=== PATIENT | male | born 1940 | race Caucasian/White ===

== ENCOUNTER → 2017-10-26 | Outpatient (CLI) | payer OTHER ==
[~2017-10-26] MED LIST: ASPIR 8181 M1 PO; CARDURA4 MG PO; CITRATE OF MAG296 ML PO; COUMADIN 2 MG TA2 M1 PO; DIALYVITE 3,001 EACH PO; FLONASE 0.05%50 MCG NASAL; IMDUR 60 MG TAB60 M1 PO; LIPITOR 20 MG T20 M1 PO; MELATONIN3 MG PO; MINOCIN100 MG PO; MIRALAX17 GM PO; NIFEDICAL XL60 MG PO; PACERONE200 MG PO; PLAVIX 75 MG TA75 M1 PO; POTASSIUM20 PO; QUESTRAN PACKET4 GM PO; RENVELA800 MG PO; SALINE NASAL SP30 ML INH; SIMVASTATIN40 MG PO; ST. JOSEPH ASPI81 MG PO; TOPROL XL25 MG PO; TYLENOL EXTRA500 MG PO
[2017-10-26 13:24] VITALS: BP 138/75
--- NOTE | 2017-10-26 13:24 | NUR ---
ARRIVED AMBULATORY. MADE SELF COMFORTABLE IN RECLINER. HX OBTAINED FROM PT'S , ALEA. ASSESSMENT COMPLETED. PT HERE FOR PROCRIT INJECTION D/T ANEMIA FROM CHRONIC KIDNEY DX (STAGE IV). PT HAD LABS DRAWN ON 10/19/17. PT TO RECEIVE PROCRIT 10,000 UNITS IM. PROCRIT 10,000 UNITS GIVEN IM INTO LEFT ARM. DENIES NEEDS OR QUESTIONS AT DISCHARGE. CARE NOTES RE: PROCRIT GIVEN TO PT'S AND SHE VERBALIZED UNDERSTANDING. S/S OF ADVERSE REACTION TO PROCRIT REVIEWED W/PT'S , ALEA. PT AMBULATED FOR D/CHARGE HOME TO SELF CARE. ACCOMPANIED BY . GAIT STEADY.
== END ==
LOC: M.INFUS 13:19
DX: N18.4 Chronic kidney disease, stage 4 (severe) (principal); D63.1 Anemia in chronic kidney disease

== ENCOUNTER → 2017-11-09 | Outpatient (CLI) | payer OTHER ==
[2017-11-09 14:05] VITALS: BP 132/71
--- NOTE | 2017-11-09 14:27 | NUR ---
DENIES ADVERSE REACTION TO PRIOR INJECTION OF SAME. INJECTION COMPLETED AND TOELRATED WELL. DENIES NEEDS AT DISCHARGE.
== END ==
LOC: M.INFUS 03:44
DX: N18.4 Chronic kidney disease, stage 4 (severe) (principal); D63.1 Anemia in chronic kidney disease

== ENCOUNTER → 2017-11-26 | Outpatient (CLI) | payer OTHER ==
[2017-11-26 11:00] VITALS: BP 145/91
[2017-11-26 12:09] LABS: CALCIUM 8.2 mg/dL (8.5-10.1); CREATININE 4.2 mg/dL (0.6-1.3); POTASSIUM 3.6 mmol/L (3.5-5.1)
== END ==
LOC: M.INFUS 11-23 01:40 → M.RAD 11:10
PROVIDERS: Internal Medicine Nephrology
DX: N18.4 Chronic kidney disease, stage 4 (severe) (principal); D64.9 Anemia, unspecified; I51.7 Cardiomegaly; I50.1 Left ventricular failure, unspecified; J90 Pleural effusion, not elsewhere classified

== ENCOUNTER → 2017-12-07 | Outpatient (CLI) | payer OTHER ==
[2017-12-07 12:44] VITALS: BP 136/93
--- NOTE | 2017-12-07 14:39 | NUR ---
INJECTIONOF SAME DOSE, 12,500 COMPLETED AND TOLERATED WELL. DENIES ADVERSE REACTION TO PRIOR INJECTIONS OF SAME. DENIES QUESTIONS OR NEEDS AT DISCHARGE.
== END ==
LOC: M.INFUS 01:51
DX: N18.4 Chronic kidney disease, stage 4 (severe) (principal); D63.1 Anemia in chronic kidney disease

== ENCOUNTER 2018-01-12 06:02 | Emergency (ER) | payer OTHER ==
[~2018-01-12] VITALS: Ht 177.8 cm; Wt 68.0 kg
[~2018-01-12 06:02] MED LIST changes: -COUMADIN 2 MG TA2 M1 PO; -DIALYVITE 3,001 EACH PO; -FLONASE 0.05%50 MCG NASAL; -IMDUR 60 MG TAB60 M1 PO; -MELATONIN3 MG PO; -MIRALAX17 GM PO; -PACERONE200 MG PO; -RENVELA800 MG PO; -SALINE NASAL SP30 ML INH; -ST. JOSEPH ASPI81 MG PO; -TOPROL XL25 MG PO; -TYLENOL EXTRA500 MG PO
[2018-01-12 06:08] VITALS: BP 156/89
[2018-01-12] MEDS ORDERED: PACERONE200 MG PO (06:17)
[2018-01-12] MEDS ORDERED: ST. JOSEPH ASPI81 MG PO (06:18)
[2018-01-12] MEDS ORDERED: FLONASE 0.05%50 MCG NASAL (06:24)
[2018-01-12] MEDS ORDERED: COUMADIN 2 MG TA2 M1 PO (06:25)
[2018-01-12] MEDS ORDERED: MIRALAX17 GM PO (06:25)
[2018-01-12] MEDS ORDERED: TOPROL XL25 MG PO (06:25)
[2018-01-12] MEDS ORDERED: IMDUR 60 MG TAB60 M1 PO (06:25)
[2018-01-12 06:56] LABS: INR 3.1
== END 2018-01-12 07:21 | disposition home or self-care (01) ==
LOC: M.ERS 06:02
PROVIDERS: Emergency Medicine
DX: R04.0 Epistaxis (principal); I25.10 Atherosclerotic heart disease of native coronary artery without angina pectoris; I12.9 Hypertensive chronic kidney disease with stage 1 through stage 4 chronic kidney disease, or unspecified chronic kidney disease; N18.4 Chronic kidney disease, stage 4 (severe); I48.91 Unspecified atrial fibrillation; Z86.2 Personal history of diseases of the blood and blood-forming organs and certain disorders involving the immune mechanism; Z86.73 Personal history of transient ischemic attack (TIA), and cerebral infarction without residual deficits

== ENCOUNTER 2018-01-12 14:30 | Emergency (ER) | payer OTHER ==
[~2018-01-12] VITALS: Ht 177.8 cm; Wt 68.0 kg
[~2018-01-12 14:30] MED LIST changes: +COUMADIN 2 MG TA2 M1 PO; +FLONASE 0.05%50 MCG NASAL; +IMDUR 60 MG TAB60 M1 PO; +MIRALAX17 GM PO; +PACERONE200 MG PO; +ST. JOSEPH ASPI81 MG PO; +TOPROL XL25 MG PO
[2018-01-12 14:37] VITALS: BP 136/84
== END 2018-01-12 14:56 | disposition home or self-care (01) ==
LOC: M.ERS 14:30
DX: R04.0 Epistaxis (principal); I25.10 Atherosclerotic heart disease of native coronary artery without angina pectoris; I12.0 Hypertensive chronic kidney disease with stage 5 chronic kidney disease or end stage renal disease; N18.5 Chronic kidney disease, stage 5; I48.91 Unspecified atrial fibrillation; Z86.2 Personal history of diseases of the blood and blood-forming organs and certain disorders involving the immune mechanism

== ENCOUNTER 2018-01-30 09:46 | Inpatient (IN) | payer OTHER ==
[~2018-01-30] VITALS: Ht 177.8 cm; Wt 70.3 kg
[2018-01-30 11:00] VITALS: BP 119/76
[2018-01-30] MEDS ORDERED: SALINE NASAL SP30 ML INH (11:27)
[2018-01-30] MEDS ORDERED: MELATONIN3 MG PO (11:31)
[2018-01-30] MEDS ORDERED: TYLENOL EXTRA500 MG PO (11:32)
[2018-01-30] MEDS ORDERED: DIALYVITE 3,001 EACH PO (12:12)
[2018-01-30] MEDS ORDERED: RENVELA800 MG PO (12:12)
[2018-01-30 12:14] LABS: ABSOLUTE BASOPHILS 0.1 thou/uL (0.0-0.2); ABSOLUTE EOSINOPHILS 0.1 thou/uL (0.0-0.7); ABSOLUTE LYMPHOCYTES 1.3 thou/uL (0.8-5.3); ABSOLUTE MONOCYTES 0.6 thou/uL (0.0-1.2); ABSOLUTE NEUTROPHILS 4.1 thou/uL (1.6-8.1); BASOPHILS 1.1 %; EOSINOPHILS 1.5 %; HEMATOCRIT 31.6 % (42.0-52.0); HEMOGLOBIN 10.4 gm/dL (14.0-18.0); LYMPHOCYTES 21.4 %; MCH 31.2 pg (26.0-34.0); MCV 94.5 fL (80.0-100.0); MONOCYTES 9.3 %; MPV 8.5 fl. (7.2-11.1); NUCLEATED RBCS 0 /100WBC; PLATELET COUNT* 78 thou/uL (150-400); POLYS 66.7 %; RBC 3.34 mil/uL (4.50-6.00); RDW-CV 19.8 % (10.5-14.5); WBC 6.1 thou/uL (4.0-11.0)
[2018-01-30 12:20] LABS: APTT 34.4 Seconds (25.0-31.3); INR 1.8; PROTIME 18.3 Seconds (9.20-11.50)
[2018-01-30 15:29] VITALS: BP 139/83
[2018-01-30 19:50] VITALS: BP 127/68
[2018-01-31 00:27] VITALS: BP 119/75
[2018-01-31 03:15] LABS: ALBUMIN 2.5 g/dL (3.4-5.0); CALCIUM 8.6 mg/dL (8.5-10.1); CREATININE 5.2 mg/dL (0.6-1.3); PHOSPHORUS* 3.9 mg/dL (2.5-4.9)
[2018-01-31 04:41] VITALS: BP 125/73
[2018-01-31 08:27] VITALS: BP 133/85
--- NOTE | 2018-01-31 11:08 | EKG ---
[place] [address] ELECTROCARDIOGRAM REPORT Name: MARIA ISABEL CLINE Junaid Room: [address] ADM IN .R.#: [id number] Admission: 01/31/18 Attend Phys: Chelita Rodrigues MD Discharge: Date of : 44 Report #: [id number] THIS REPORT FOR: //name// [facility] Test Date: 2018-01-30 Test Time: 12:10:11 Pat Name: MARIA ISABEL CLINE Department: Room: [facility] Gender: M Manager Mobile: : 1940 Requested By: Chelita Rodrigues Order Number: [id number] Reading MD: Nikunj Maddox Measurements Intervals [place] Rate: 62 P: IL: QRS: -54 QRSD: 193 T: 137 QT: 528 QTc: 537 Interpretive Statements sinus rhythm with first degree av block Left bundle branch block Compared to ECG 01/09/2016 08:16:46 no change Electronically Signed On 01-31-2018 11:07:51 CDT by Nikunj Maddox [email or web address] <ELECTRONICALLY SIGNED> By: Nikunj Maddox MD, FACC 01/31/18 1107 1210 1210 Nikunj Maddox MD, [facility] /EPI
[2018-01-31 11:49] VITALS: BP 141/81
[2018-01-31 20:00] VITALS: BP 136/79
[2018-02-01] VITALS (8 sets, daily range): BP systolic 108–172; BP diastolic 61–88
[2018-02-01 05:21] LABS: HEMATOCRIT 32.1 % (42.0-52.0); HEMOGLOBIN 10.9 gm/dL (14.0-18.0); MCH 31.1 pg (26.0-34.0); MCHC 33.8 g/dL (28.0-37.0); MPV 8.6 fl. (7.2-11.1); RBC 3.49 mil/uL (4.50-6.00); WBC 6.9 thou/uL (4.0-11.0)
[2018-02-01 05:35] LABS: ALBUMIN 2.7 g/dL (3.4-5.0); CALCIUM 8.2 mg/dL (8.5-10.1); POTASSIUM 3.6 mmol/L (3.5-5.1); TOTAL BILIRUBIN 0.9 mg/dL (<0.1-1.0); TOTAL PROTEIN 6.3 g/dL (6.4-8.2)
[2018-02-01 05:44] LABS: CREATININE 3.5 mg/dL (0.6-1.3)
--- NOTE | 2018-02-01 16:03 | OP ---
[address] [address] OPERATIVE REPORT Name: MARLYN,FORD Junaid Room: [address] IN M.R.#: [id number] Admission: 01/31/18 Attend Phys: Chelita Rodrigues MD Discharge: Date of : 42 Report #: [id number] THIS REPORT FOR: //name// CC: Urbano Adrian DATE OF SERVICE: 02/01/2018 PREOPERATIVE DIAGNOSIS: End-stage renal disease. POSTOPERATIVE DIAGNOSIS: End-stage renal disease. PROCEDURE: The right upper extremity brachiocephalic AV fistula formation. SURGEON: Isaac Adrian MD CHANNEL MARKETING PROGRAM MANAGER: Hal Hoyt, salesperson surgical appliances. COMPLICATIONS: None. ESTIMATED BLOOD LOSS: 10 mL. SPECIMEN: None. ANESTHESIA: Local sedation. INDICATION FOR PROCEDURE: The patient is a very pleasant 77-year-old white male with end-stage renal disease, on dialysis. He has a tunneled dialysis catheter. He needs long-term access. We plan to proceed with right arm brachiocephalic AV fistula today. Informed consent was obtained from the patient with risks including but not limited to bleeding, infection, need for further surgery, pain, , heart attack, stroke, steal syndrome. He understood these risks and was agreeable to proceed. DESCRIPTION OF PROCEDURE: The patient was taken to the OR, placed in supine position, adequate sedation was initiated, timeout was performed. Right arm was prepped and draped in usual sterile fashion. The patient received appropriate preoperative antibiotics. The patient was systemically heparinized throughout the critical portion of procedure. I created a transverse incision just above the antecubital fossa of right upper extremity. Sharp and blunt dissection was carried down the brachial artery and cephalic vein. Both these appeared to be adequate for fistula formation. I ligated the cephalic vein distally with a 2-0 silk suture ligature. I spatulated the free end of the vein. I was able to pass a 5 mm dilator without difficulty. I transposed the vein over on to the brachial artery. I created a longitudinal brachial [place] [address] OPERATIVE REPORT Name: MARIA ISABEL CLINE Room: [address] IN .R.#: [id number] Admission: 01/31/18 Attend Phys: Chelita Rodrigues MD Discharge: Date of : 42 Report #: [id number] end-to-side anastomosis between the vein and artery using a running 6-0 Prolene suture. At the completion of anastomosis, there was good hemostasis and excellent flow through the vein with a thrill running up to the patient's arm. The patient had a palpable radial pulse. I took down some connective tissue to free up the vein proximally, so there was no kinking. We irrigated the wound with antibiotic saline. We used some Gabriela and electrocautery to control bleeding as well as ties and clips. We closed the wound in multiple layers using 3-0 Vicryl and 4-0 Monocryl for the skin. Incision was dressed with Dermabond. The patient was taken alert and awake to recovery room in good condition. All needle and instrument counts were correct at the end of the case. <ELECTRONICALLY SIGNED> By: Brando Carvalho DO 02/01/18 1603 0947 [id number] Adrian MD /rolo
[2018-02-02 00:32] VITALS: BP 109/58
[2018-02-02 04:43] VITALS: BP 117/73
[2018-02-02 04:59] LABS: HEMATOCRIT 29.7 % (42.0-52.0); HEMOGLOBIN 10.1 gm/dL (14.0-18.0); INR 1.4; MCH 31.6 pg (26.0-34.0); MCHC 34.2 g/dL (28.0-37.0); MCV 92.5 fL (80.0-100.0); MPV 8.4 fl. (7.2-11.1); PROTIME 14.2 Seconds (9.20-11.50); RBC 3.21 mil/uL (4.50-6.00); RDW-CV 20.4 % (10.5-14.5); WBC 7.1 thou/uL (4.0-11.0)
[2018-02-02 05:17] LABS: CALCIUM 8.2 mg/dL (8.5-10.1)
[2018-02-02 05:43] LABS: CREATININE 4.9 mg/dL (0.6-1.3)
[2018-02-02 08:00] VITALS: BP 112/63
[2018-02-02 16:00] VITALS: BP 129/62
[2018-02-02 20:00] VITALS: BP 115/56
[2018-02-03] VITALS (7 sets, daily range): BP systolic 102–128; BP diastolic 54–76
[2018-02-03 05:21] LABS: INR 1.5; PROTIME 15.6 Seconds (9.20-11.50)
[2018-02-03 05:36] LABS: APTT 77.7 Seconds (25.0-31.3)
[2018-02-04 03:50] VITALS: BP 120/59
[2018-02-04 05:29] LABS: HEMATOCRIT 29.4 % (42.0-52.0); HEMOGLOBIN 9.8 gm/dL (14.0-18.0); MCH 31.4 pg (26.0-34.0); MCHC 33.5 g/dL (28.0-37.0); MCV 93.8 fL (80.0-100.0); MPV 8.3 fl. (7.2-11.1); RBC 3.14 mil/uL (4.50-6.00); RDW-CV 20.7 % (10.5-14.5); WBC 6.5 thou/uL (4.0-11.0)
[2018-02-04 05:43] LABS: INR 1.8; PROTIME 17.9 Seconds (9.20-11.50)
[2018-02-04 05:50] LABS: ALBUMIN 2.5 g/dL (3.4-5.0); CALCIUM 8.3 mg/dL (8.5-10.1); CREATININE 5.6 mg/dL (0.6-1.3); POTASSIUM 4.1 mmol/L (3.5-5.1); TOTAL BILIRUBIN 0.7 mg/dL (<0.1-1.0); TOTAL PROTEIN 5.9 g/dL (6.4-8.2)
[2018-02-04 08:00] VITALS: BP 120/66
[2018-02-04 12:00] VITALS: BP 113/62
[2018-02-04 12:11] VITALS: BP 120/66
[2018-02-04 16:00] VITALS: BP 117/59
[2018-02-04 16:10] LABS: HEPATITIS B SURFACE AG Negative (Negative)
[2018-02-04 20:00] VITALS: BP 133/65
[2018-02-05] VITALS: BP 129/76
[2018-02-05 01:43] LABS: ABSOLUTE BASOPHILS 0.1 thou/uL (0.0-0.2); ABSOLUTE EOSINOPHILS 0.2 thou/uL (0.0-0.7); ABSOLUTE LYMPHOCYTES 1.4 thou/uL (0.8-5.3); ABSOLUTE MONOCYTES 0.5 thou/uL (0.0-1.2); ABSOLUTE NEUTROPHILS 4.9 thou/uL (1.6-8.1); BASOPHILS 0.8 %; EOSINOPHILS 2.2 %; HEMATOCRIT 28.3 % (42.0-52.0); HEMOGLOBIN 9.6 gm/dL (14.0-18.0); LYMPHOCYTES 19.9 %; MCH 31.5 pg (26.0-34.0); MCV 92.7 fL (80.0-100.0); MPV 8.2 fl. (7.2-11.1); NUCLEATED RBCS 0 /100WBC; PLATELET COUNT* 102 thou/uL (150-400); POLYS 70.1 %; RBC 3.05 mil/uL (4.50-6.00); RDW-CV 20.5 % (10.5-14.5)
[2018-02-05 03:17] LABS: PROTIME 20.1 Seconds (9.20-11.50)
[2018-02-05 04:00] VITALS: BP 120/69
[2018-02-05 06:22] LABS: PLATELET ESTIMATE DECREASED
[2018-02-05 06:23] LABS: ANISOCYTOSIS 1+; MICROCYTES 1+; POIKILOCYTOSIS 1+
[2018-02-05 06:24] LABS: BURR CELLS Occasional; HYPOCHROMASIA Occasional
[2018-02-05 08:00] VITALS: BP 124/77
[2018-02-05 12:17] VITALS: BP 122/65
--- NOTE | 2018-02-09 11:56 | CON ---
[address] [address] CONSULTATION Name: MARIA ISABEL CLINE Junaid Room: [address] IN M.R.#: [id number] Admission: 01/31/18 Attend Phys: Chelita Rodrigues MD Discharge: 02/05/18 Date of : 42 Report #: [id number] THIS REPORT FOR: //name// CC: Urbano Adrian DATE OF SERVICE: 01/31/2018 CONSULTING PHYSICIAN: Dr. Rodrigues. REASON FOR CONSULTATION: End-stage kidney disease. HISTORY OF PRESENT ILLNESS: A 77-year-old gentleman with history of end-stage kidney disease who was admitted for heparin bridging prior to surgery for an AV fistula/graft creation on Sunday by Dr. Adrian. He currently has no complaints. He has been dialyzing without any difficulty through his tunneled dialysis catheter and has been dialyzing since 11/2017. REVIEW OF SYSTEMS: Constitutional, psych, heme, eyes, ENT, respiratory, cardiac, GI, , endocrine all negative except as documented above. PAST MEDICAL HISTORY: End-stage kidney disease, hypertension, history of CVA, dyslipidemia, ischemic cardiomyopathy. MEDICATIONS: Reviewed. SOCIAL HISTORY: No tobacco. FAMILY HISTORY: Not pertinent in this 77-year-old gentleman. MEDICATIONS: Reviewed. PHYSICAL EXAMINATION: VITAL SIGNS: Blood pressure 133/85, pulse 61, temperature 36.7. GENERAL: No acute distress. EYES: Open. EARS: Externally normal. CARDIOVASCULAR: Regular rate. LUNGS: No crackles. ABDOMEN: Soft. MUSCULOSKELETAL: Nontender. PSYCHIATRIC: Awake, alert. LABORATORY DATA: White cell count 6.1, hemoglobin 10.4, platelets 78. Sodium 134, potassium 4, chloride 100, bicarbonate 28, BUN 46, creatinine 5.2, [place] [address] CONSULTATION Name: MARIA ISABEL CLINE Room: [address] IN [facility].#: [id number] Admission: 01/31/18 Attend Phys: Chelita Rodrigues MD Discharge: 02/05/18 Date of : 42 Report #: [id number] 119, calcium 8.6, phosphorus 3.9, albumin 2.5. ASSESSMENT: 1. End-stage kidney disease, on hemodialysis Tuesdays, , Saturdays at the [facility]. 2. Anemia of chronic disease. 3. Atrial fibrillation. 4. Hypertension. 5. Coronary artery disease with ischemic cardiomyopathy. PLAN: 1. Dialysis today. 2. He does have thrombocytopenia. We will defer management of this and workup if needed to Internal Medicine. 3. Continue outpatient renal medications. He is scheduled for AV fistula/AV graft creation by Dr. Adrian tomorrow. 4. We will add a renal vitamin. 5. We will follow for dialysis needs. Thank you for requesting my opinion in the care and management of this patient. <ELECTRONICALLY SIGNED> By: Aj Mirza MD 02/09/18 1156 1114 1528Abisera Mirza MD /nt
== END 2018-02-05 14:12 | disposition home or self-care (01) | DRG 264 ==
LOC: EDSTATUS 09:46 → M.TBA 09:50 → M.2W 10:17 → M.TBA 10:17 → M.2W 13:40 → M.TBA 14:43 → M.2W 01-31 09:32 → M.SUR 02-01 07:56 → EDSTATUS 02-01 14:39 → M.2W 02-05 14:12
PROVIDERS: Internal Medicine; Internal Medicine Nephrology; Surgery Vascular Surgery; ADMIT Internal Medicine
PROC: 5A1D70Z Performance of Urinary Filtration, Intermittent, Less than 6 Hours Per Day (ICD-10-PCS; principal; 2018-01-31)
PROC: 03170ZD Bypass Right Brachial Artery to Upper Arm Vein, Open Approach (ICD-10-PCS; 2018-02-01)
PROC: 5A1D70Z Performance of Urinary Filtration, Intermittent, Less than 6 Hours Per Day (ICD-10-PCS; 2018-02-02)
PROC: 5A1D70Z Performance of Urinary Filtration, Intermittent, Less than 6 Hours Per Day (ICD-10-PCS; 2018-02-05)
DX: I13.2 Hypertensive heart and chronic kidney disease with heart failure and with stage 5 chronic kidney disease, or end stage renal disease (principal); N18.6 End stage renal disease; E44.1 Mild protein-calorie malnutrition; I48.91 Unspecified atrial fibrillation; I25.10 Atherosclerotic heart disease of native coronary artery without angina pectoris; I25.5 Ischemic cardiomyopathy; E78.00 Pure hypercholesterolemia, unspecified; I50.9 Heart failure, unspecified; D63.8 Anemia in other chronic diseases classified elsewhere; M21.371 Foot drop, right foot; Z99.2 Dependence on renal dialysis; Z86.718 Personal history of other venous thrombosis and embolism; Z86.73 Personal history of transient ischemic attack (TIA), and cerebral infarction without residual deficits; Z79.82 Long term (current) use of aspirin; Z79.899 Other long term (current) drug therapy; Z23 Encounter for immunization

== ENCOUNTER 2018-04-03 11:09 | Inpatient (IN) | payer OTHER ==
[~2018-04-03] VITALS: Ht 177.8 cm; Wt 66.7 kg
[~2018-04-03 11:09] MED LIST changes: +DIALYVITE 3,001 EACH PO; +MELATONIN3 MG PO; +RENVELA800 MG PO; +SALINE NASAL SP30 ML INH; +TYLENOL EXTRA500 MG PO
[2018-04-03 11:30] VITALS: BP 119/59
--- NOTE | 2018-04-03 12:16 | NUR ---
PT DIRECT ADMIT TO ROOM 222 FOR HEPARIN BRDIGE PRIOR TO AV FISTULA PLACEMENT 04/04/18. VSS. ADMISSION HISTORY AND ASSESSMENT COMPLETED CHARTED. PT ALERT AND OREITNED BUT FORGETFUL. PT ON RA. IV STARTED TO LEFT AC. PT TO START ON HEPARIN GTT. PT DENIES ANY PAIN. PT'S SPOUSE AT BEDSIDE. MED REC COMPLETED. PT AND SPOUSE ORIENTED TO ROOM AND CALL LIGHT AND PLAN OF CARE. THEY COMMUNICATE UNDERSTANIDNG. CALL LIGHT IS WITHIN REACH. WILL CONTINUE TO MONTIOR FOR DURATION OF SHIFT.
[2018-04-03 12:37] LABS: HEMATOCRIT 36.4 % (42.0-52.0); HEMOGLOBIN 12.4 gm/dL (14.0-18.0); MCH 33.7 pg (26.0-34.0); MCHC 34.2 g/dL (28.0-37.0); MCV 98.4 fL (80.0-100.0); PLATELET COUNT* 83 thou/uL (150-400); RDW-CV 17.2 % (10.5-14.5); WBC 7.9 thou/uL (4.0-11.0)
[2018-04-03 12:44] LABS: CREATININE 5.8 mg/dL (0.6-1.3)
[2018-04-03 12:45] LABS: APTT 34.3 Seconds (25.0-31.3); PROTIME 20.1 Seconds (9.20-11.50)
[2018-04-03 12:47] LABS: ABSOLUTE BASOPHILS 0.1 thou/uL (0.0-0.2); ABSOLUTE EOSINOPHILS 0.2 thou/uL (0.0-0.7); ABSOLUTE LYMPHOCYTES 1.2 thou/uL (0.8-5.3); ABSOLUTE MONOCYTES 0.7 thou/uL (0.0-1.2); ABSOLUTE NEUTROPHILS 5.8 thou/uL (1.6-8.1); BASOPHILS 0.9 %; EOSINOPHILS 2.6 %; LYMPHOCYTES 14.9 %; MONOCYTES 8.4 %; NUCLEATED RBCS 0 /100WBC; POLYS 73.2 %
[2018-04-03 12:48] LABS: ALBUMIN 3.2 g/dL (3.4-5.0); MAGNESIUM 2.4 mg/dL (1.8-2.4); PHOSPHORUS* 3.3 mg/dL (2.5-4.9); TOTAL BILIRUBIN 0.5 mg/dL (<0.1-1.0); TOTAL PROTEIN 7.1 g/dL (6.4-8.2)
[2018-04-03 16:00] VITALS: BP 113/53
--- NOTE | 2018-04-03 18:38 | NUR ---
VSS. CARDIAC MONITORING IN PLACE WITH NO CHANGES THIS SHIFT. PT REMAINS ALERT AND ORIENTED X 2-3 BUT FORGETFUL. IV HEPARIN GTT INFUSING PER ORDERS. VASCULAR WANTS PT TO HAVE DIALYSIS EARLY TOMORROW AM BEFORE SURGERY SCHEDULED FOR 1500. NEPHROLOGY NOTIFIED OF REQUEST. HEPARIN GTT TO BE OFF 4 HOURS BEFORE SURGERY. PT AND PT'S SPOUSE INFORMED OF PLAN OF CARE. CALL LIGHT IS WITHIN REACH. WILL CONTINUE TO MOTNIOR FOR DURATION OF SHIFT.
[2018-04-03 20:00] VITALS: BP 137/68
[2018-04-04] VITALS: BP 133/66
--- NOTE | 2018-04-04 00:05 | NUR ---
PT ASSESSMENT CVOMPLETE AT START OF SHIFT. REFER TO COMPUTER CHARTING FOR DETAILS. PT DENIES PAIN. NO FURTHER DRAINAGE FROM AV FISTULA SITE. ORDERS TO RESTART HEPARIN GTT RECEIVED. PT DENIES PAIN, SOA, N/V/D AT THIS TIME. TRACING SR-SB WITH 1ST DEGREE BLOCK ON MONITOR. CLWR
[2018-04-04 04:00] VITALS: BP 122/68
[2018-04-04 04:37] LABS: HEMATOCRIT 32.6 % (42.0-52.0); HEMOGLOBIN 11.1 gm/dL (14.0-18.0); MCH 33.6 pg (26.0-34.0); MCHC 34.1 g/dL (28.0-37.0); MCV 98.6 fL (80.0-100.0); MPV 8.6 fl. (7.2-11.1); RBC 3.3 mil/uL (4.50-6.00); RDW-CV 16.9 % (10.5-14.5); WBC 8.1 thou/uL (4.0-11.0)
[2018-04-04 04:45] LABS: CALCIUM 8.2 mg/dL (8.5-10.1); CREATININE 6.7 mg/dL (0.6-1.3); MAGNESIUM 2.4 mg/dL (1.8-2.4); POTASSIUM 3.7 mmol/L (3.5-5.1)
--- NOTE | 2018-04-04 05:20 | NUR ---
PATIENT RESTED IN BED. PATIENT DID NOT SHOW SIGNS OF DISTRESS. FALL PRECAUTIONS IN PLACE, CALL LIGHT WITH IN REACH, HOURLY ROUNDING OBSERVED, BED ALARM ON.
[2018-04-04 08:00] VITALS: BP 127/58
--- NOTE | 2018-04-04 09:59 | EKG ---
[place] [address] ELECTROCARDIOGRAM REPORT Name: MARIA ISABEL CLINE Junaid Room: [address] ADM IN M.R.#: [id number] Admission: 04/03/18 Attend Phys: Chelita Rodrigues MD Discharge: Date of : 42 Report #: [id number] THIS REPORT FOR: //name// [facility] Test Date: 2018-04-04 Test Time: 05:22:09 Pat Name: MARIA ISABEL CLINE Department: Room: [address] Gender: M Paper Products Machine Operator: DHIRAJ : 1940 Requested By: Chelita Rodrigues Order Number: [id number] Reading MD: Nikunj Maddox Measurements Intervals [place] Rate: 56 P: 256 DE: 311 QRS: -48 QRSD: 197 T: 120 QT: 546 QTc: 528 Interpretive Statements Sinus or ectopic atrial bradycardia Prolonged DE interval Left bundle branch block Compared to ECG 01/30/2018 12:10:11 Sinus rhythm no longer present Electronically Signed On 04-04-2018 9:59:38 AIR ROUTE CONTROLLER by Nikunj Maddox [email or web address] <ELECTRONICALLY SIGNED> By: Nikunj Maddox MD, [facility] 04/04/18 0959 0522 0522 Nikunj Maddox MD, [facility] /EPI
[2018-04-04 10:50] LABS: INR 1.7; PROTIME 17.1 Seconds (9.20-11.50)
--- NOTE | 2018-04-04 11:21 | NUR ---
PT ALERT AND ORIENTED X 3. DENIES DISCOMFORT. IV PATIENT. RESTARTED HEPARIN GTT @ 0800. PT TO CONTINUE WITH HEPARIN WHILE RECEIVING DIALYSIS. PT UP WITH SBA X 1 WITH GAIT BELT AND CANE. PT TO DIALYSIS @ 0842. HEPARIN GTT STOPPED @ 1100 WHILE @ DIALYSIS.
--- NOTE | 2018-04-04 11:37 | NUR ---
Pt out of the room, will f/u to assess later
--- NOTE | 2018-04-04 15:09 | NUR ---
PT RETURNED FROM DIALYSIS @ 1300. DRESSING ON RIGHT CHEST PORT-C/D/I. UP WITH STAFF TO AMBULATE AND SIT IN RECLINER. @ BEDSIDE. PT DENIES NAUSEA OR PAIN. PT TO PROCEDURE FOR FISTULA @ 1448 BY BED.
[2018-04-04 16:00] VITALS: BP 125/54
--- NOTE | 2018-04-04 17:21 | NUR ---
PT RETURNED FROM FISTULA PROCEDURE @ 7333. RESUMED RENAL DIET. HOURLY ROUNDS MAINTAINED. CALL LIGHT WITHIN REACH.
[2018-04-04 19:00] VITALS: BP 119/52
[2018-04-04 20:48] LABS: INR 1.5; PROTIME 15.7 Seconds (9.20-11.50)
[2018-04-04 23:08] LABS: HEPATITIS B SURFACE AG Negative (Negative)
[2018-04-05] VITALS (7 sets, daily range): BP systolic 95–128; BP diastolic 45–61
[2018-04-05 06:52] LABS: INR 1.5
--- NOTE | 2018-04-05 10:03 | NUR ---
Pt is A&O. Resides at home with his . Per Pt, completes most ADLs, Pt stated that he can drive, but his won't let him. Pt is independent with IADLs. Pt has a cane and walker at home that he can use for mobility. Pt is currently with [facility] and wants to resume at [facility]. Pt is current at [facility] on a TTS schedule with a chairtime of 10am, Pt's H&P and flowsheets will need to be faxed to [facility] at [facility], fax number is [phone]. No hx of skilled. Pt's goal is to return home at [facility]. Following [facility] p:[phone], f:[phone] [facility] p:[phone], f:[phone]
--- NOTE | 2018-04-05 10:27 | NUR ---
RECEIVED REPORT FROM AYAZ AND ASSUMED CARE OF PT @ 6033.PT IS A/O X4,VSS,TRACING SB WITH 1ST DEGREE AND BBB.IV LEFT WRIST PATENT WITH HEPARIN RUNNING @ 800 UNITS/HR.PT IS CALM AND COOPERATIVE WITH NO C/O PAIN AT TIME OF ASSESSMENT.PT IS UP WITH SBA TO BATHROOM.PT LEFT RESTING IN RECLINER WITH CALL LIGHT AND FALL PRECAUTIONS IN PLACE.WILL CONTINUE TO MONITOR.
--- NOTE | 2018-04-05 18:11 | NUR ---
VSS.CARDIAC MONITORING IN PLACE WITH NO CHANGES.PT REMAINS ON ROOM AIR.PROGRESSING TOWARDS GOALS.COUMADIN RESTARTED.PT INFORMED OF PLAN OF CARE AND COMMUNICATES UNDERSTANDING.NO C/O PAIN.PT AMBULATED IN HALLWAY WITH RAISE DRILLER.IV PATENT WITH HEPARIN INFUSING @ 800 UNITS/HR.HOURLY ROUNDING COMPLETED FOR PT SAFETY.PT LEFT RESTING IN RECLINER WITH CALL LIGHT AND FALL PRECAUTIONS IN PLACE.WILL CONTINUE TO MONITOR FOR DURATION OF SHIFT.
--- NOTE | 2018-04-06 00:03 | NUR ---
ASSESSMENT COMPLETE AT START OF SHIFT. PT DID AMBULATE AROUND UNIT WITH RETAIL REPRESENTATIVE, STEADY GAIT. PT DENIES PAIN, SOA, N/V/D. PT TRACING SR-SB WITH 1ST DEGREE BLOCK ON MONITOR. FALL PRECAUTIONS IN PLACE. CLWR.
[2018-04-06 03:56] VITALS: BP 132/58
--- NOTE | 2018-04-06 05:18 | NUR ---
PT HAS SLEPT WELL T/O THIS SHIFT. TRACING SB WITH 1ST DEGREE/BBB ON MONITOR. PTT IS THERAPEUTIC, NO CHANGE TO HEPARIN GTT. NO NEW CONCERNS. CLWR
[2018-04-06 07:55] VITALS: BP 124/64
[2018-04-06 08:52] LABS: INR 1.4; PROTIME 14.7 Seconds (9.20-11.50)
--- NOTE | 2018-04-06 08:57 | NUR ---
RECEIVED REPORT FROM AYAZ AND ASSUMED CARE OF PT @ 0768.PT IS A/O X4,VSS,TRACING SB WITH 1ST DEGREE AND BBB ON THE MONITOR.IV PATENT WITH HEPARIN INFUSING @ 700 UNITS/HR.DIALYSIS PORT SECURE AND CLEAN,DRY,INTACT.PT IS CALM AND COOPERATIVE WITH NO C/O PAIN AT TIME OF ASSESSMENT.PT LEFT IN CHAIR FOR BREAKFAST WITH CALL LIGHT AND FALL PRECAUTIONS IN PLACE.WILL CONTINUE TO MONITOR.
[2018-04-06] MEDS ORDERED: CONSTULOSE10 GM/152 PO (11:41)
[2018-04-06 12:11] VITALS: BP 107/50
--- NOTE | 2018-04-06 18:04 | NUR ---
VSS.CARDIAC MONITORING IN PLACE WITH NO CHANGES.PT REMAINS ON ROOM AIR.DIALYSIS COMPLETED TODAY.NO C/O PAIN.IV PATENT WITH HEPARIN DRIP INFUSING @ 700 UNITS/HR.PTT DRAW WITH RESULTS OF 64.0-NO CHANGES MADE TO DRIP RATE.PT INFORMED OF PLAN OF CARE AND COMMUNICATES UNDERSTANDING.PT AMBULATED IN HALLWAY WITH IMPREGNATING HELPER.HOURLY ROUNDING COMPLETED FOR PT SAFETY.CALL LIGHT AND FALL PRECAUTIONS IN PLACE.WILL CONTINUE TO MONITOR DURATION OF SHIFT.
[2018-04-06 19:00] VITALS: BP 120/55
[2018-04-07] VITALS: BP 106/59
--- NOTE | 2018-04-07 01:06 | NUR ---
PT ASSESSMENT COMPLETE AT START OF SHIFT. PT DENIES PAIN, SOA, N/V/D. PT AMBULATED AROUND UNIT 2 TIMES WITH SBA AND WALKER, STEADY GAIT. PT FRUSTRATED THAT HE IS NOT ABLE TO GO HOME YET. PT EDUCATED ON COUMADIN AND NEED FOR INR TO BE AT THERAPEUTIC LEVELS, VOICES UNDERSTANDING. TRACING SR WITH 1ST DEGREE AND BBB ON MONITOR. REFER TO CHARTING FOR DETAILS. CLWR.
[2018-04-07 04:00] VITALS: BP 113/63
--- NOTE | 2018-04-07 06:46 | NUR ---
PT SLEPT WELL T/O THIS SHIFT. NO NEW CONCERNS. CLWR.
--- NOTE | 2018-04-07 07:38 | OP ---
[facility] [address] [place] [address] OPERATIVE REPORT Name: MARLYN,FORD Junaid Room: [address] IN M.R.#: [id number] Admission: 04/03/18 Attend Phys: Chelita Rodrigues MD Discharge: Date of : 42 Report #: [id number] THIS REPORT FOR: //name// CC: Urbano Rodrigues DATE OF SERVICE: 04/04/2018 PREOPERATIVE DIAGNOSES: 1. End-stage renal disease. 2. Pulsatile arteriovenous fistula, right upper extremity. POSTOPERATIVE DIAGNOSES: 1. End-stage renal disease. 2. Pulsatile arteriovenous fistula, right upper extremity. PROCEDURE: 1. Fistulogram, right upper extremity. 2. Drug-coated balloon angioplasty of cephalic vein outflow. 3. Central venogram. FINDINGS: 1. Arterial anastomosis widely patent. 2. Access another fistula widely patent. 3. Stenosis within the cephalic vein within the upper arm venous outflow at . 4. No central venous stenosis identified on venacavogram. 5. After intervention, cephalic vein is widely patent throughout the right upper extremity. SURGEON: Isaac Adrian MD. MACHINES TECHNICIAN: Hal Hoyt. COMPLICATIONS: None. ESTIMATED BLOOD LOSS: 10 mL. SPECIMEN: None. ANESTHESIA: Local sedation. Sedation was performed due to the painful nature of the procedure. I supervised the nurse throughout the sedation. Please see sedation report for further details. [facility] [place] [address] OPERATIVE REPORT Name: MARIA ISABEL CLINE Junaid Room: [address] IN M.R.#: [id number] Admission: 04/03/18 Attend Phys: Chelita Rodrigues MD Discharge: Date of : 42 Report #: [id number] INDICATION FOR PROCEDURE: The patient is a very pleasant 78-year-old white male with end-stage renal disease, on dialysis through a tunneled dialysis catheter. I previously placed a right upper extremity brachiocephalic AV fistula. This has failed to develop. It has a pulsatile thrill. I suspect venous outflow stenosis. I contacted Dr. Bowers with the access center for a fistulogram. However, the patient could not be done at their facility, as he needed bridging for his Coumadin. He had to be admitted to the hospital for this. Therefore, I planned to proceed with fistulogram today. Informed consent was obtained from the patient with risks including but not limited to bleeding, infection, need for further surgery, pain, , heart attack, stroke, steal syndrome. He understood these risks and was agreeable to proceed. DESCRIPTION OF PROCEDURE: The patient was taken to the angio suite, placed in supine position. After adequate sedation was initiated, timeout was performed. The patient's right arm was prepped and draped in usual sterile fashion. I infused 10 mL of 1% lidocaine over the fistula. I accessed the fistula in antegrade fashion without difficulty. I used Seldinger technique to exchange out for a 7-Uzbek sheath. I performed fistulogram. I crossed the stenosis within the cephalic vein. I angioplastied this with an 8-mm balloon. I performed reflux angiogram to identify the arterial anastomosis. I then prepped a drug-coated balloon Lutonix 8 x 40. I performed drug-coated balloon angioplasty of the stenotic area for the recommended treatment length of time. Completion imaging showed excellent result with resolution of the stenosis. I performed central venogram. I removed my sheath and placed a single Monocryl stitch in the skin. There was no bleeding hematoma. There was a palpable thrill running of the patient's arm. There was no pulsation. <ELECTRONICALLY SIGNED> By: Isaac Adrian MD 04/07/18 0738 1557 1615Isaac Adrian MD /nt
[2018-04-07 08:00] VITALS: BP 147/69
--- NOTE | 2018-04-07 08:46 | CON ---
[address] [address] CONSULTATION Name: MARLYN,NICOLAS R Room: [address] IN M.R.#: [id number] Admission: 04/03/18 Attend Phys: Chelita Rodrigues MD Discharge: Date of : 42 Report #: [id number] THIS REPORT FOR: //name// CC: Urbano Rodrigues DATE OF SERVICE: 04/04/2018 CONSULTING PHYSICIAN: Dr. Rodrigues. REASON FOR NEPHROLOGY CONSULTATION: End-stage renal disease for hemodialysis. REASON FOR ADMISSION: Elective admission for balloon angioplasty of AV graft and for heparin bridging. HISTORY OF PRESENT ILLNESS: The patient is a very pleasant patient who has past medical history of end-stage renal disease, who is on hemodialysis via his right IJ tunneled dialysis catheter, which is displaced recently in December of this year and he goes for dialysis at [facility] every Sunday, and Sunday, was admitted because his AV fistula and needs balloon angioplasty and his credentialing coordinator recommended heparin bridging since he is on anticoagulation chronically for his atrial fibrillation. He was seen on dialysis today. He was stable. He had no complaints and is going for surgery this afternoon. ALLERGIES: No known allergies. REVIEW OF SYSTEMS: As mentioned above in history of present illness. He has no complaints. HOME MEDICATIONS: Include isosorbide mononitrate, atorvastatin, amiodarone, aspirin, metoprolol, polyethylene glycol, warfarin, melatonin, acetaminophen, sevelamer and vitamin B complex. PAST MEDICAL AND SURGICAL HISTORY: Includes hypertension and he has had frequent TIAs and strokes and he has end-stage renal disease, he is on hemodialysis every Sunday, and Sunday; coronary artery disease; chronic atrial fibrillation; ischemic cardiomyopathy; anemia of chronic kidney disease and dyslipidemia. FAMILY HISTORY: Not significant. SOCIAL HISTORY: He lives at home with his . He does not smoke, drink alcohol or use illicit drugs. PHYSICAL EXAMINATION: [place] [address] CONSULTATION Name: MARIA ISABEL CLINE Room: [address]#: [id number] Admission: 04/03/18 Attend Phys: Chelita Rodrigues MD Discharge: Date of : 42 Report #: [id number] VITAL SIGNS: Blood pressure is 122/60, respiratory rate is 30, pulse rate 54, temperature of 96.7. GENERAL: He is awake, alert, oriented, on dialysis, stable on dialysis. HEAD, EYES, EARS, NOSE AND THROAT: Mucous membranes are moist. NECK: There is no JVD. CHEST: Bilaterally clear to auscultation anteriorly. CARDIOVASCULAR: S1, S2 normal. No murmurs heard. ABDOMEN: Soft, nondistended, nontender. Bowel sounds are present. EXTREMITIES: He has no lower extremity edema, symmetrical lower extremities. DIALYSIS ACCESS: He has a right IJ tunneled dialysis catheter, which is currently in use and he has a right arm AV fistula, which has a good bruit and good thrill. NEUROLOGICAL FUNCTION: His neurological function is intact. PSYCHIATRIC: Mood and affect seem to be normal. LABORATORY DATA: Hemoglobin is 11.1, potassium is 3.7, sodium is 136, BUN is 59. Other labs are reviewed. IMAGING: There was no imaging to be reviewed at this time. ASSESSMENT: 1. End-stage renal disease. He is on hemodialysis Sunday, , Sunday. 2. Chronic atrial fibrillation, on heparin bridging currently because he is going for a procedure this afternoon. 3. Elective admission for arteriovenous fistula angioplasty this afternoon. 4. Anemia of chronic kidney disease, currently hemoglobin is at goal at 11.1. 5. Hypertension. Blood pressure is at goal. PLAN: Plan for elective balloon angioplasty for AV fistula this afternoon. The patient seen on dialysis today and his hemoglobin is at goal. Thank you for this consultation. We will continue to follow along with you for his dialysis needs. <ELECTRONICALLY SIGNED> By: Kaylene Musa MD 04/07/18 0846 0926 [id number] Musa MD /nt
[2018-04-07 09:05] LABS: APTT 64.1 Seconds (25.0-31.3); INR 1.8; PROTIME 18.7 Seconds (9.20-11.50)
--- NOTE | 2018-04-07 10:10 | NUR ---
RECEIVED REPORT FROM AYAZ AND ASSUMED CARE OF PT @ 9384.PT IS A/O X4,VSS,TRACING SR WITH 1ST DEGREE AND BBB ON THE MONITOR.ASSESSMENT CHARTED.IV PATENT WITH HEPARIN INFUSING @ 700 UNITS/HR. PT IS CALM AND COOPERATIVE WITH NO C/O PAIN AT TIME OF ASSESSMENT.PT LEFT RESTING IN BED WITH CALL LIGHT AND FALL PRECAUTIONS IN PLACE.WILL CONTINUE TO MONITOR.
[2018-04-07 11:50] VITALS: BP 97/46
[2018-04-07 13:53] VITALS: BP 97/46
--- NOTE | 2018-04-07 14:08 | NUR ---
PT OK FOR DISCHAGRE.PAPERWORK COMPLETED AND GIVEN TO PT.NO SCRIPTS.IV REMOVED.HEART MONITOR REMOVED AND RETURNED TO NURSING STATION.ALL PERSONAL BELONGINGS PACKED AND TAKEN WITH PT.PT EDUCATED ON COUMADIN AND S/S OF STROKE.PT WHEELED OUT BY NURSING STAFF TO PERSONAL VEHICLE BY NURSING STAFF.
== END 2018-04-07 17:16 | disposition home or self-care (01) | DRG 673 ==
LOC: CANPRESDC → M.2W 11:09 → M.SUR 04-04 10:14 → EDSTATUS 04-04 11:06 → M.2W 04-07 17:16
PROVIDERS: Internal Medicine; Nurse Practitioner Family; ADMIT Internal Medicine
PROC: B51W1ZZ Fluoroscopy of Dialysis Shunt/Fistula using Low Osmolar Contrast (ICD-10-PCS; principal; 2018-04-04)
PROC: 057 Upper Veins, Dilation (ICD-10-PCS; principal; 2018-04-04)
DX: I12.0 Hypertensive chronic kidney disease with stage 5 chronic kidney disease or end stage renal disease (principal); N18.6 End stage renal disease; D68.59 Other primary thrombophilia; I77.0 Arteriovenous fistula, acquired; I25.10 Atherosclerotic heart disease of native coronary artery without angina pectoris; D63.1 Anemia in chronic kidney disease; I48.2 Chronic atrial fibrillation; I25.5 Ischemic cardiomyopathy; M19.90 Unspecified osteoarthritis, unspecified site; G62.9 Polyneuropathy, unspecified; K21.9 Gastro-esophageal reflux disease without esophagitis; E78.5 Hyperlipidemia, unspecified; E78.00 Pure hypercholesterolemia, unspecified; H91.90 Unspecified hearing loss, unspecified ear; Z86.718 Personal history of other venous thrombosis and embolism; Z86.73 Personal history of transient ischemic attack (TIA), and cerebral infarction without residual deficits; Z79.01 Long term (current) use of anticoagulants; Z79.82 Long term (current) use of aspirin; Z79.899 Other long term (current) drug therapy

== ENCOUNTER → 2018-06-05 | Outpatient (CLI) | payer OTHER ==
[~2018-06-05] VITALS: Ht 180.3 cm; Wt 64.9 kg
[~2018-06-05] MED LIST changes: +CONSTULOSE10 GM/152 PO
--- NOTE | ~2018-06-05 | OP ---
[address] [address] OPERATIVE REPORT Name: MARIA ISABEL CLINE Room: [facility]#: [id number] Admission: 06/05/18 Attend Phys: Brenden Norwood DO Discharge: Date of : 44 Report #: [id number] THIS REPORT FOR: //name// CC: Brenden Clement Rodriguez DATE OF SERVICE: 06/05/2018 PREOPERATIVE DIAGNOSES: End-stage renal disease, poorly functioning right brachiocephalic arteriovenous fistula. POSTOPERATIVE DIAGNOSES: End-stage renal disease, poorly functioning right brachiocephalic arteriovenous fistula. OPERATION: 1. Ultrasound-guided access to the right upper extremity fistula. 2. Right upper extremity fistulogram. 3. Angioplasty of the cephalic vein outflow and angioplasty of the subclavian vein. SURGEON: Brenden Norwood DO. NOZZLE AND SLEEVE WORKER: None. ANESTHESIA: Sedation with local. ESTIMATED BLOOD LOSS: 10 mL. FLUIDS: Less than 100 crystalloid. URINE OUTPUT: None. SPECIMENS: None. IMPLANTS: None. COMPLICATIONS: None. FINDINGS: Ultrasound demonstrated patent fistula circuit. This was confirmed with the fistulogram. This demonstrated moderately severe to severe stenosis in the mid portion of the cephalic vein. He also had a moderately severe stenosis in the cephalic arch extending into the subclavian vein as well. This responded pretty well to balloon angioplasty with significant improvement in the thrill, certainly less pulsatile and excellent brisk flow through the fistula with less filling of collaterals on fistulogram. [address] [address] OPERATIVE REPORT Name: MARLYN,NICOLAS R [facility] [id number] Admission: 06/05/18 Attend Phys: Brenden Norwood DO Discharge: Date of : 42 Report #: [id number] CLINICAL HISTORY: The patient is a 78-year-old man with end-stage renal disease who is currently dialyzing through right IJ tunneled dialysis catheter. He has had a right brachiocephalic fistula created and they have had difficulty accessing this. A fistulogram is requested. DESCRIPTION OF PROCEDURE: After informed consent was obtained, the patient was taken to the angio suite, placed on the angio bed in supine position. His right upper extremity was prepped and draped in the usual sterile fashion. Full timeout was performed identifying correct patient and procedure. Using ultrasound guidance, the right upper extremity fistula was identified, was accessed with a micropuncture needle after anesthetizing the skin and subcutaneous tissues with lidocaine anesthetic. A microwire and microsheath were performed. I performed the right upper extremity fistulogram with reflux fistulogram with the findings noted above. I exchanged out for a 6-Hebrew sheath. I then angioplastied the cephalic vein throughout its course, first with an 8 mm Ultraverse balloon and subsequently with a 9 mm Ultraverse balloon with a good result. Then we took more of a central venogram. There was no real central venous stenosis, but he did have a moderately severe stenosis in his cephalic arch. This responded well to the 8 mm balloon angioplasty. Following all intervention he had a much improved thrill within his fistula, certainly less pulsatile, less filling of collateral vessels on fistulogram. Satisfied with the result, 4-0 Monocryl pursestring suture was placed around the sheath. The wire and the sheath were removed. Sterile dressing was applied. All sponge, sharp and instrument counts reported correct x 2. He tolerated the procedure well and was transferred to recovery in stable condition. Fistula may be used immediately for dialysis needs. By: [id number] Norwood DO /nt
[2018-06-05 11:23] VITALS: BP 158/74
[2018-06-05 11:41] VITALS: BP 158/74
[2018-06-05 11:55] LABS: HEMATOCRIT 33.1 % (42.0-52.0); HEMOGLOBIN 11.2 gm/dL (14.0-18.0); MCH 34.2 pg (26.0-34.0); MCHC 33.7 g/dL (28.0-37.0); MCV 101.7 fL (80.0-100.0); MPV 7.4 fl. (7.2-11.1); RBC 3.26 mil/uL (4.50-6.00); RDW-CV 16.3 % (10.5-14.5); WBC 7.7 thou/uL (4.0-11.0)
[2018-06-05 12:08] LABS: CALCIUM 9.4 mg/dL (8.5-10.1); CREATININE 7.1 mg/dL (0.6-1.3); POTASSIUM 4.6 mmol/L (3.5-5.1)
[2018-06-05 12:09] LABS: APTT 32.7 Seconds (25.0-31.3); PROTIME 20.2 Seconds (9.20-11.50)
[2018-06-05 12:13] LABS: ALBUMIN 3.3 g/dL (3.4-5.0); TOTAL BILIRUBIN 0.6 mg/dL (<0.1-1.0); TOTAL PROTEIN 7.4 g/dL (6.4-8.2)
== END | disposition home or self-care (01) ==
LOC: M.INT 10:59
PROVIDERS: Surgery
DX: T82.590A Other mechanical complication of surgically created arteriovenous fistula, initial encounter (principal); I12.9 Hypertensive chronic kidney disease with stage 1 through stage 4 chronic kidney disease, or unspecified chronic kidney disease; N18.4 Chronic kidney disease, stage 4 (severe); Z99.2 Dependence on renal dialysis; I25.10 Atherosclerotic heart disease of native coronary artery without angina pectoris; I25.5 Ischemic cardiomyopathy; I48.91 Unspecified atrial fibrillation; D64.9 Anemia, unspecified; E78.00 Pure hypercholesterolemia, unspecified

== ENCOUNTER 2018-06-21 07:41 | Observation (INO) | payer OTHER ==
[~2018-06-21] VITALS: Ht 177.8 cm; Wt 68.9 kg
--- NOTE | ~2018-06-21 | OP ---
[facility] [address] [place] [address] OPERATIVE REPORT Name: MARIA ISABEL CLINE Room: [facility]#: [id number] Admission: 06/21/18 Attend Phys: Brando Bender Discharge: Date of : 42 Report #: [id number] THIS REPORT FOR: //name// CC: Urbano Bender DATE OF SERVICE: 06/21/2018 PREOPERATIVE DIAGNOSIS: End-stage renal disease. POSTOPERATIVE DIAGNOSIS: End-stage renal disease. OPERATIONS: 1. Laparoscopic placement of tunneled intraperitoneal catheter. 2. Laparoscopic omentopexy. SURGEON: Brando Bender MD ANESTHESIA: General. ESTIMATED BLOOD LOSS: Minimal. SPECIMENS: None. DESCRIPTION OF PROCEDURE: After informed consent was obtained, the patient was brought to the operating room and placed supine. SCDs were placed and working. Preoperative antibiotics were administered, general anesthesia was induced. The abdomen was prepped and draped in the usual sterile fashion. A 5 mm incision was made in the left upper quadrant. A 5 mm trocar was placed under direct vision. Pneumoperitoneum was established. A left-sided 5 mm port was placed. A right-sided 8 mm trocar was placed in the rectus sheath. An 8 mm port was placed. 62 cm catheter was placed. It was then tunneled into the right upper quadrant of the abdomen. It flushed easily with 600 mL of heparinized saline. It drained easily as well. Omentopexy was then performed by taking the omentum and tacking it up to the right upper quadrant of the abdomen. This was done with a PMI suture passer. This was 2-0 Vicryl. The ports were removed under direct vision. Skin was closed with 4-0 Monocryl. Incisions were sealed with Dermabond. COMPLICATIONS: [place] [address] OPERATIVE REPORT Name: MARLYN,NICOLAS R Room: [facility]#: [id number] Admission: 06/21/18 Attend Phys: Brando Bender Discharge: Date of : 42 Report #: [id number] DISPOSITION: The patient was taken to recovery in satisfactory condition. By: [id number] [id number] Bender MD /nt
[~2018-06-21 07:41] MED LIST changes: +COUMADIN 1MG TAB1 M1 PO
[2018-06-21 08:20] LABS: HEMATOCRIT 31.5 % (42.0-52.0); HEMOGLOBIN 10.6 gm/dL (14.0-18.0); MCH 33.5 pg (26.0-34.0); MCHC 33.6 g/dL (28.0-37.0); MCV 99.8 fL (80.0-100.0); MPV 7.5 fl. (7.2-11.1); RBC 3.16 mil/uL (4.50-6.00); RDW-CV 15.7 % (10.5-14.5); WBC 6.5 thou/uL (4.0-11.0)
[2018-06-21 08:40] LABS: APTT 31.4 Seconds (25.0-31.3); INR 1.8; PROTIME 18.6 Seconds (9.20-11.50)
[2018-06-21 09:47] LABS: POC CA IONIZED 4.3 mg/dL (4.5-5.3); POC HEMOGLOBIN 9.9 g/dL (12.0-17.0); POC POTASSIUM 4.9 mmol/L (3.5-4.9)
[2018-06-21 10:18] LABS: CALCIUM 8.8 mg/dL (8.5-10.1); CREATININE 5.9 mg/dL (0.6-1.3); POTASSIUM 4.5 mmol/L (3.5-5.1)
[2018-06-21] MEDS ORDERED: NORCO 5-325 TA1 EACH PO (11:11)
[2018-06-21 14:34] LABS: HEMATOCRIT 27.2 % (42.0-52.0); HEMOGLOBIN 9.4 gm/dL (14.0-18.0); MCH 34.2 pg (26.0-34.0); MCHC 34.7 g/dL (28.0-37.0); MCV 98.7 fL (80.0-100.0); MPV 7.4 fl. (7.2-11.1); RBC 2.75 mil/uL (4.50-6.00); RDW-CV 15.5 % (10.5-14.5); WBC 8.8 thou/uL (4.0-11.0)
[2018-06-21 16:30] VITALS: BP 124/54
--- NOTE | 2018-06-21 16:42 | NUR ---
PATIENT ADMITTED TO ROOM 309 VIA CART FROM SURGERY. ASSESSMENT COMPLETED. PLACED ON CARDIAC MONTIOR. SALINE LOCK PATENT. ABDOMINAL DRESSING ASSESSED WITH PACU NURSE, SHADOWING NOTED. ABDOMEN SOFT. ORIENTED TO ROOM AND ENVIRONMENT. CALL LIGHT WITHIN REACH. FALL PRECAUTIONS IN PLACE. WILL CONTINUE WITH PLAN OF CARE.
--- NOTE | 2018-06-21 18:52 | NUR ---
PATIENT HAS BEEN A/O X 4 THIS SHIFT, EXTREMELY BISHOP PAIUTE. PATIENT ON MACHINE ADJUSTER, TRACING SR WITH 1DEGREE AV BLOCK. PATIENT WITH FISTULA TO RIGHT ARM, + THRILL AND + BRUIT. PATIENT WITH DRESSING TO ABDOMEN S/P PERITONEAL DIALYSIS CATHETER PLACEMENT, NO FURTHER SHADOWING NOTED FROM EARLIER. SALINE LOCK PATENT. PAIN MEDS GIVEN X 1 WITH RELIEF. NEPH CONSULTED AND WILL ADDRESS DIALYSIS NEEDS. UPDATED PROVIDED TO PATIENT'S . FALL PRECAUTIONS IN PLACE. HOURLY ROUNDING COMPLETED. CALL LIGHT WITHIN REACH. WILL CONTINUE WITH PLAN OF CARE.
[2018-06-21 20:15] VITALS: BP 106/55
[2018-06-21 21:02] LABS: HEMATOCRIT 26.5 % (42.0-52.0); HEMOGLOBIN 9.1 gm/dL (14.0-18.0); MCH 34.2 pg (26.0-34.0); MCHC 34.3 g/dL (28.0-37.0); MCV 99.9 fL (80.0-100.0); MPV 7.7 fl. (7.2-11.1); RBC 2.65 mil/uL (4.50-6.00); RDW-CV 15.7 % (10.5-14.5); WBC 8.5 thou/uL (4.0-11.0)
[2018-06-22] VITALS: BP 98/50
[2018-06-22 04:00] VITALS: BP 97/44
[2018-06-22 05:25] LABS: ABSOLUTE EOSINOPHILS 0.1 thou/uL (0.0-0.7); ABSOLUTE LYMPHOCYTES 1.2 thou/uL (0.8-5.3); ABSOLUTE MONOCYTES 0.5 thou/uL (0.0-1.2); ABSOLUTE NEUTROPHILS 5.2 thou/uL (1.6-8.1); BASOPHILS 0.6 %; EOSINOPHILS 2.1 %; HEMATOCRIT 26.7 % (42.0-52.0); HEMOGLOBIN 9.1 gm/dL (14.0-18.0); LYMPHOCYTES 16.3 %; MCH 33.8 pg (26.0-34.0); MCV 99.5 fL (80.0-100.0); MONOCYTES 7.4 %; MPV 7.6 fl. (7.2-11.1); NUCLEATED RBCS 0 /100WBC; PLATELET COUNT* 86 thou/uL (150-400); POLYS 73.6 %; RBC 2.68 mil/uL (4.50-6.00); RDW-CV 15.8 % (10.5-14.5); WBC 7.1 thou/uL (4.0-11.0)
[2018-06-22 05:41] LABS: INR 1.7; PROTIME 17.7 Seconds (9.20-11.50)
[2018-06-22 05:46] LABS: CALCIUM 8.2 mg/dL (8.5-10.1); POTASSIUM 5.2 mmol/L (3.5-5.1)
--- NOTE | 2018-06-22 05:57 | NUR ---
PT SLEPT ON AND OFF THIS SHIFT. ASSESSMENT DOCUMENTED. MEDS GIVEN PER E-JUN. PT STATED THAT HE DOES NOT HAVE PAIN LONG HE IS NOT MOVING AND DID NOT WANT ANY PAIN MEDICATIONS. DRESSINGS INTACT. WILL CONTINUE WITH PLAN OF CARE.
[2018-06-22 06:02] LABS: CREATININE 8.2 mg/dL (0.6-1.3)
[2018-06-22 08:00] VITALS: BP 108/57
[2018-06-22 11:33] VITALS: BP 108/57
--- NOTE | 2018-06-22 16:51 | NUR ---
SHIFT NOTE - PT IN HEMEDIALYSIS AT 1300 THIS SHIFT. POSSIBLE DISCHARGE THIS EVENING IF TOLERATES. WILL CONTINUE TO MONITOR.
--- NOTE | 2018-06-22 18:10 | NUR ---
DISCHARGE NOTE - REVIEWED INSTRUCTIONS WITH PT/SPOUSE. NO QUESTIONS. IV REMOVED. PERITONEAL DIALYSIS DRESSING INTACT AND THEY WILL ASSESS ON 06/25. ALL BELONGINGS SENT WITH PT.
--- NOTE | 2018-06-23 09:02 | CON ---
[address] [address] CONSULTATION Name: MARIA ISABEL CLINE Room: [address] M.R.#: [id number] Admission: 06/21/18 Attend Phys: Javier Disla MD Discharge: 06/22/18 Date of : 42 Report #: [id number] THIS REPORT FOR: //name// CC: Javier Rodriguez REASON FOR CONSULTATION: This is a consultation for end-stage renal disease to provide dialysis during the hospital stay. HISTORY OF PRESENT ILLNESS: The patient was admitted yesterday after he had laparoscopic PD catheter placement. He also had removal of his tunneled right IJ hemodialysis catheter. He has a right upper arm brachiocephalic fistula. The patient had pain postoperatively and was admitted overnight for observation. This morning, he still reports some lower abdominal pain. The dressing over his PD catheter site is slightly soiled. He had no fever overnight. He is doing fairly well otherwise. His appetite is back. He will be dialyzed this afternoon. He is usually on dialysis Sunday, and Sunday [facility] under the care of Dr. Mirza. PAST MEDICAL HISTORY: End-stage renal disease on hemodialysis, history of constipation, ischemic cardiomyopathy, history of CVA, epistaxis, GI bleeds, anemia, atrial fibrillation, and dyslipidemia. PERSONAL AND SOCIAL AND FAMILY HISTORY: Reviewed. He has never smoked. No alcohol reported. No family history of ESRD. REVIEW OF SYSTEMS: No chest pain reported. Mild lower abdominal pain. No fevers, rigors, or chills, etc. PHYSICAL EXAMINATION: VITAL SIGNS: Blood pressure is stable at 108/57,pulse of 57, temperature 36.7. GENERAL: He is awake. He is alert, answers questions appropriately. LUNGS: Clear. HEART: Regular S1, S2. ABDOMEN: Distended, soft. PD catheter in place. Dressing was noted to be slightly soiled. His bowel sounds are present. EXTREMITIES: He has right upper arm brachiocephalic fistula. LABORATORY DATA: Hemoglobin 9.1, potassium 5.2, BUN 57, creatinine 8.2. ASSESSMENT: 1. End-stage renal disease, on hemodialysis. 2. Right upper arm fistula. 3. PD catheter placement yesterday. 4. [place] [address] CONSULTATION Name: MARIA ISABEL CLINE Junaid Room: [address]#: [id number] Admission: 06/21/18 Attend Phys: Javier Disla MD Discharge: 06/22/18 Date of : 42 Report #: [id number] 5. History of anemia. PLAN: 1. The patient will be dialyzed today. 2. The patient is okay to be discharged from my perspective as well as the other reasons to be in the hospital. 3. We will continue to follow and provide necessary support. 4. Epogen during the hospital stay. <ELECTRONICALLY SIGNED> By: Ten Bowers MD 06/23/18 0902 1040 0005Ten Bowers MD /nt
== END 2018-06-22 18:10 | disposition home or self-care (01) ==
LOC: M.SUR 07:41 → M.3W 15:05 → M.TBA 15:05 → M.3W 16:07 → M.SUR 16:50 → M.3W 17:02
PROVIDERS: Surgery; ADMIT Internal Medicine
DX: N18.6 End stage renal disease (principal); I12.0 Hypertensive chronic kidney disease with stage 5 chronic kidney disease or end stage renal disease; Z99.2 Dependence on renal dialysis; I25.10 Atherosclerotic heart disease of native coronary artery without angina pectoris; I25.5 Ischemic cardiomyopathy; I48.91 Unspecified atrial fibrillation; L98.8 Other specified disorders of the skin and subcutaneous tissue; Z79.899 Other long term (current) drug therapy; Z86.73 Personal history of transient ischemic attack (TIA), and cerebral infarction without residual deficits

== ENCOUNTER → 2018-07-12 | Outpatient (CLI) | payer OTHER ==
[~2018-07-12] MED LIST changes: +NORCO 5-325 TA1 EACH PO
== END ==
LOC: M.RAD 15:35
DX: R19.5 Other fecal abnormalities (principal)

== ENCOUNTER → 2018-10-18 | Outpatient (CLI) | payer OTHER ==
[~2018-10-18] VITALS: Ht 177.8 cm; Wt 69.9 kg
[~2018-10-18] MED LIST changes: +LINZESS145 MCG PO; +LISINOPRIL10 MG PO
--- NOTE | ~2018-10-18 | OP ---
[address] [place] [address] OPERATIVE REPORT Name: MARLYN,NICOLAS R Room: [facility]#: [id number] Admission: 10/18/18 Attend Phys: Isaac Adrian MD Discharge: Date of : 42 Report #: [id number] THIS REPORT FOR: //name// CC: Urbano Adrian DATE OF SERVICE: 10/18/2018 PREOPERATIVE DIAGNOSES: 1. End-stage renal disease. 2. Increased pressure, right upper extremity arteriovenous fistula. POSTOPERATIVE DIAGNOSES: 1. End-stage renal disease. 2. Increased pressure, right upper extremity arteriovenous fistula. PROCEDURES: 1. Fistulogram, right upper extremity. 2. Angioplasty access zone fistula. 3. Angioplasty central venous stenosis drug-coated balloon. FINDINGS: 1. Arterial anastomosis with pain. 2. There is stenosis within the mid portion of the access zone approximately 70-80%. 3. There is severe stenosis of the confluence of the cephalic and axillary veins of approximately 90%. 4. No central venous stenosis identified. 5. After intervention, there is widely patent flow through the fistula and the outflow veins. SURGEON: Isaac Adrian MD HOSPICE SOCIAL WORKER: Jesús Latham. COMPLICATIONS: None. ESTIMATED BLOOD LOSS: 10 mL. SPECIMEN: None. ANESTHESIA: Local sedation. COMPLICATIONS: None. INDICATIONS FOR PROCEDURE: The patient is a very pleasant 78-year-old white [address] [place] [address] OPERATIVE REPORT Name: MARIA ISABEL CLINE Room: [facility]#: [id number] Admission: 10/18/18 Attend Phys: Isaac Adrian MD Discharge: Date of : 42 Report #: [id number] male who is on dialysis. He does peritoneal dialysis. He has a fistula in his right arm for backup if his catheter gets infected or needs to come out. He has pulsatile flow in the fistula. Noninvasive imaging suggested an outflow stenosis. We plan to perform fistulogram today. I will use minimal contrast given that he is on peritoneal dialysis. Informed consent was obtained with risks including but not limited to bleeding, infection, need for further surgery, pain, , heart attack, stroke, steal syndrome. He understands these risks and is agreeable to proceed. The patient was taken to the angio suite, placed in supine position. Timeout was performed. DESCRIPTION OF PROCEDURE: The patient's right arm was prepped and draped. I infused 10 mL of 1% lidocaine for local anesthetic. I accessed AV fistula in an antegrade fashion. I used Seldinger technique to exchange out for an 8-Thai sheath. I performed fistulogram, findings as noted above. I used 10% contrast throughout. Using a catheter and wire, I across this stenosis within the access zone as well as the venous outflow. I angioplastied areas with an 8 mm balloon. I then performed drug-coated balloon angioplasty of the cephalic vein confluence. I prepped the Lutonix drug-coated balloon according to electrical journeyman's instructions and deployed it for the recommended treatment length of time. Completion imaging showed excellent result with resolution of the stenoses of both portions. I also angioplastied the access zone with a 10 mm balloon. I performed reflux angiogram of the arterial anastomosis. There was no stenosis. There was no central venous stenosis on central venogram. I removed the sheath and placed a marker stitch in the skin. The thrill was now no longer pulsatile and had an excellent thrill within it. The patient tolerated the procedure well and was taken alert and awake to recovery room in good condition. PLAN: The plan will be to repeat fistulogram in 3 months. I suspect at that time, he will likely require stenting if he has recurrent stenosis. We will plan for likely a 12 mm Covera stent. By: 1201 [id number] Adrian MD /rolo
[2018-10-18 09:38] LABS: ABSOLUTE EOSINOPHILS 0.2 thou/uL (0.0-0.7); ABSOLUTE LYMPHOCYTES 0.8 thou/uL (0.8-5.3); ABSOLUTE MONOCYTES 0.7 thou/uL (0.0-1.2); ABSOLUTE NEUTROPHILS 7.7 thou/uL (1.6-8.1); BASOPHILS 0.5 %; HEMATOCRIT 36.7 % (42.0-52.0); HEMOGLOBIN 12.3 gm/dL (14.0-18.0); MCHC 33.5 g/dL (28.0-37.0); MCV 98.4 fL (80.0-100.0); MONOCYTES 7.4 %; MPV 7.2 fl. (7.2-11.1); NUCLEATED RBCS 0 /100WBC; PLATELET COUNT* 138 thou/uL (150-400); POLYS 82.1 %; RBC 3.73 mil/uL (4.50-6.00); RDW-CV 15.1 % (10.5-14.5); WBC 9.4 thou/uL (4.0-11.0)
[2018-10-18 09:44] LABS: CALCIUM 8.6 mg/dL (8.5-10.1); CREATININE 9.6 mg/dL (0.6-1.3); POTASSIUM 3.7 mmol/L (3.5-5.1)
[2018-10-18 09:49] LABS: APTT 35.1 Seconds (25.0-31.3); INR 1.9; PROTIME 19.6 Seconds (9.20-11.50)
[2018-10-18 09:51] VITALS: BP 135/69
[2018-10-18 09:58] VITALS: BP 135/69
[2018-10-18 12:17] VITALS: BP 158/62
== END | disposition home or self-care (01) ==
LOC: M.INT 08:20
PROVIDERS: Surgery Vascular Surgery
DX: T82.858A Stenosis of other vascular prosthetic devices, implants and grafts, initial encounter (principal); I87.1 Compression of vein; I12.0 Hypertensive chronic kidney disease with stage 5 chronic kidney disease or end stage renal disease; N18.6 End stage renal disease; I77.0 Arteriovenous fistula, acquired; I25.5 Ischemic cardiomyopathy; I25.10 Atherosclerotic heart disease of native coronary artery without angina pectoris; I48.91 Unspecified atrial fibrillation; E78.00 Pure hypercholesterolemia, unspecified; D64.9 Anemia, unspecified; Z86.73 Personal history of transient ischemic attack (TIA), and cerebral infarction without residual deficits; Z98.890 Other specified postprocedural states; Z79.01 Long term (current) use of anticoagulants; Z79.899 Other long term (current) drug therapy; Z79.82 Long term (current) use of aspirin; Y83.8 Other surgical procedures as the cause of abnormal reaction of the patient, or of later complication, without mention of misadventure at the time of the procedure

== ENCOUNTER → 2018-12-18 | Day surgery (SDC) | payer OTHER ==
[~2018-12-18] MED LIST changes: +TRAMADOL 50 MG50 MG PO
--- NOTE | ~2018-12-18 | OP ---
[address] [address] OPERATIVE REPORT Name: MARLYN,NICOLAS R Room: [facility]#: [id number] Admission: 12/18/18 Attend Phys: Isaac Adrian MD Discharge: Date of : 42 Report #: [id number] THIS REPORT FOR: //name// CC: Urbano Adrian DATE OF SERVICE: 12/18/2018 PREOPERATIVE DIAGNOSES: 1. End-stage renal disease. 2. Pseudoaneurysm thrombosed right arm arteriovenous fistula. POSTOPERATIVE DIAGNOSES: 1. End-stage renal disease. 2. Pseudoaneurysm thrombosed right arm arteriovenous fistula. PROCEDURES: 1. Revision arteriovenous fistula, right upper extremity. 2. Resection and repair of pseudoaneurysm, right upper extremity. SURGEON: Isaac Adrian MD APPLIANCE INSTALLER: Dr. Hyde, resident year-2. SECOND CONSTRUCTION EQUIPMENT OVERHAULER: Jesús Fontenot, certified surgical technologist. COMPLICATIONS: None. ESTIMATED BLOOD LOSS: 10 mL. SPECIMEN: None. ANESTHESIA: General. INDICATIONS FOR PROCEDURE: The patient is a very pleasant 78-year-old white male well known to me. He has an AV fistula of his right upper extremity. He is on dialysis. We performed multiple fistulograms on his fistula. He unfortunately has developed a pseudoaneurysm at the site of a previous access for a fistula. This is approximately marble size. He tends to pick at this area and it bothers him greatly. It appears to be thrombosed on exam. Plan today is to resect this area and likely will need to repair the fistula as well. Informed consent was obtained from the patient and his with risks including, but not limited to bleeding, infection, need for further surgery, pain, , heart attack, stroke, steal syndrome. They understand these risks [place] [address] OPERATIVE REPORT Name: MARLYN,FORD Junaid Room: [facility]#: [id number] Admission: 12/18/18 Attend Phys: Isaac Adrian MD Discharge: Date of : 42 Report #: [id number] DESCRIPTION OF PROCEDURE: The patient was taken to the OR and placed in the supine position. General anesthesia was initiated. Right arm was prepped and draped. Timeout was performed. I created a small incision over the area of pseudoaneurysmal degeneration. I dissected it out circumferentially. I dissected it out the vein. There was a venotomy where it connected to the fistula. We repaired the fistula with interrupted 5-0 Prolene suture. We removed the thrombosed pseudoaneurysm and passed off the field. We irrigated with antibiotic saline. We closed the skin directly over the fistulized vein using Monocryl stitch. Incision was dressed with Dermabond. The patient tolerated the procedure well and was taken alert and awake to recovery room in good condition. All needle and instrument counts were correct. By: 1103 1120MD dominik Marx
[2018-12-18 08:37] LABS: ABSOLUTE BASOPHILS 0.1 thou/uL (0.0-0.2); ABSOLUTE EOSINOPHILS 0.3 thou/uL (0.0-0.7); ABSOLUTE LYMPHOCYTES 1.3 thou/uL (0.8-5.3); ABSOLUTE MONOCYTES 0.6 thou/uL (0.0-1.2); ABSOLUTE NEUTROPHILS 5.7 thou/uL (1.6-8.1); BASOPHILS 0.8 %; EOSINOPHILS 3.3 %; HEMATOCRIT 38.8 % (42.0-52.0); HEMOGLOBIN 12.9 gm/dL (14.0-18.0); LYMPHOCYTES 16.1 %; MCH 33.2 pg (26.0-34.0); MCHC 33.3 g/dL (28.0-37.0); MCV 99.6 fL (80.0-100.0); MONOCYTES 7.5 %; MPV 6.7 fl. (7.2-11.1); NUCLEATED RBCS 0 /100WBC; PLATELET COUNT* 165 thou/uL (150-400); POLYS 72.3 %; RBC 3.89 mil/uL (4.50-6.00); RDW-CV 15.3 % (10.5-14.5); WBC 7.8 thou/uL (4.0-11.0)
[2018-12-18 08:48] LABS: CALCIUM 8.7 mg/dL (8.5-10.1); CREATININE 10.6 mg/dL (0.6-1.3); POTASSIUM 4.6 mmol/L (3.5-5.1)
[2018-12-18 08:49] LABS: APTT 29.5 Seconds (25.0-31.3); INR 1.6; PROTIME 16.2 Seconds (9.20-11.50)
[2018-12-18 08:52] LABS: ALBUMIN 2.8 g/dL (3.4-5.0); TOTAL BILIRUBIN 0.5 mg/dL (<0.1-1.0); TOTAL PROTEIN 7.2 g/dL (6.4-8.2)
--- NOTE | 2018-12-18 10:32 | EKG ---
[place] [address] ELECTROCARDIOGRAM REPORT Name: MARIA ISABEL CLINE Room: [facility]#: [id number] Admission: 12/18/18 Attend Phys: Isaac Adrian MD Discharge: Date of : 42 Report #: [id number] THIS REPORT FOR: //name// [facility] Test Date: 2018-12-18 Test Time: 08:51:06 Pat Name: MARIA ISABEL CLINE Department: Room: Gender: Vp Of Product: : 1940 Requested By: Isaac Adrian Order Number: [id number] Anisha MD: Nikunj Maddox Measurements Intervals [place] Rate: 60 P: 17 ME: 333 QRS: -33 QRSD: 184 T: 100 QT: 516 QTc: 516 Interpretive Statements Sinus rhythm Prolonged ME interval Left bundle branch block Baseline wander in lead(s) I,II,aVR Compared to ECG 04/04/2018 05:22:09 rate increased Electronically Signed On 12-18-2018 10:32:16 CDT by Nikunj Maddox [email or web address] <ELECTRONICALLY SIGNED> By: Nikunj Maddox MD, [facility] 12/18/18 1032 0851 0851 Nikunj Maddox MD, [facility] /EPI
== END | disposition home or self-care (01) ==
LOC: M.SUR 08:07
PROVIDERS: Surgery Vascular Surgery
DX: T82.868A Thrombosis due to vascular prosthetic devices, implants and grafts, initial encounter (principal); N18.6 End stage renal disease; Z86.73 Personal history of transient ischemic attack (TIA), and cerebral infarction without residual deficits; Z87.19 Personal history of other diseases of the digestive system; Z79.82 Long term (current) use of aspirin; Z79.899 Other long term (current) drug therapy; Z79.01 Long term (current) use of anticoagulants; Z98.890 Other specified postprocedural states; Y83.8 Other surgical procedures as the cause of abnormal reaction of the patient, or of later complication, without mention of misadventure at the time of the procedure

== ENCOUNTER 2019-06-01 16:08 | Emergency (ER) | payer MEDICARE ==
[~2019-06-01] VITALS: Ht 177.8 cm; Wt 77.1 kg
[2019-06-01 17:05] LABS: ABSOLUTE BASOPHILS 0.1 thou/uL (0.0-0.2); ABSOLUTE EOSINOPHILS 0.2 thou/uL (0.0-0.7); ABSOLUTE LYMPHOCYTES 1.5 thou/uL (0.8-5.3); ABSOLUTE MONOCYTES 0.5 thou/uL (0.0-1.2); ABSOLUTE NEUTROPHILS 6.6 thou/uL (1.6-8.1); BASOPHILS 0.6 %; EOSINOPHILS 2.3 %; HEMATOCRIT 30.8 % (42.0-52.0); HEMOGLOBIN 10.9 gm/dL (14.0-18.0); LYMPHOCYTES 16.6 %; MCH 33.9 pg (26.0-34.0); MCHC 35.3 g/dL (28.0-37.0); MCV 96.2 fL (80.0-100.0); MONOCYTES 5.7 %; MPV 7.5 fl. (7.2-11.1); NUCLEATED RBCS 0 /100WBC; PLATELET COUNT* 128 thou/uL (150-400); POLYS 74.8 %; RBC 3.21 mil/uL (4.50-6.00); RDW-CV 14.1 % (10.5-14.5); WBC 8.8 thou/uL (4.0-11.0)
[2019-06-01 17:19] LABS: CALCIUM 7.8 mg/dL (8.5-10.1); CREATININE 12.2 mg/dL (0.6-1.3); POTASSIUM 4.2 mmol/L (3.5-5.1)
[2019-06-01 17:30] LABS: ALBUMIN 2.7 g/dL (3.4-5.0); TOTAL BILIRUBIN 0.9 mg/dL (<0.1-1.0); TOTAL PROTEIN 6.4 g/dL (6.4-8.2)
[2019-06-01] MEDS ORDERED: NORCO 5-325 TA1 EAC1 PO (19:06)
[2019-06-01 19:19] VITALS: BP 122/60
--- NOTE | 2019-06-04 13:56 | EKG ---
[place] [address] ELECTROCARDIOGRAM REPORT Name: MARIA ISABEL CLINE Room: [facility]#: [id number] Admission: 06/01/19 Attend Phys: Discharge: 06/01/19 Date of : 44 Date of Service: 06/01/19 1658 Report #: [id number] THIS REPORT FOR: cc: Urbano Rodriguez,Urbano Valle,Urbano Broussard MD [facility] ~ THIS REPORT FOR: //name// [facility] ED Test Date: 2019-06-01 Test Time: 16:58:26 Pat Name: MARIA ISABEL CLINE Department: Room: Gender: M Museum Security Chief: : 1940 Requested By: Grace Lagunas Order Number: [id number] MD: Urbano Alfred Measurements Intervals [place] Rate: 68 P: 119 DC: 330 QRS: -17 QRSD: 183 T: 94 QT: 509 QTc: 542 Interpretive Statements Sinus rhythm Prolonged [place] interval Left bundle branch block Compared to ECG 12/18/2018 08:51:06 No significant changes Electronically Signed On 06-02-2019 16:04:29 APPLICATIONS MANAGER by Urbano Alfred [email or web address] <ELECTRONICALLY SIGNED> By: Urbano Alfred MD, [facility] 06/02/19 1604 1658 1658 Urbano Alfred MD, [facility] /EPI
== END 2019-06-01 19:19 | disposition home or self-care (01) ==
LOC: M.ERS 16:08
PROVIDERS: Physician Assistant
DX: I12.9 Hypertensive chronic kidney disease with stage 1 through stage 4 chronic kidney disease, or unspecified chronic kidney disease (principal); N18.4 Chronic kidney disease, stage 4 (severe); R10.32 Left lower quadrant pain; I48.91 Unspecified atrial fibrillation; E78.00 Pure hypercholesterolemia, unspecified; Z86.2 Personal history of diseases of the blood and blood-forming organs and certain disorders involving the immune mechanism; Z86.73 Personal history of transient ischemic attack (TIA), and cerebral infarction without residual deficits

== ENCOUNTER 2019-06-04 09:31 | Inpatient (IN) | payer MEDICARE ==
[~2019-06-04] VITALS: Ht 177.8 cm; Wt 76.7 kg
--- NOTE | ~2019-06-04 | H ---
[address] [address] HISTORY AND PHYSICAL Name: MARIA ISABEL CLINE Room: [address] IN M.R.#: [id number] Admission: 06/04/19 Attend Phys: Jean Yoo MD Discharge: 06/07/19 Date of : 44 Report #: [id number] THIS REPORT FOR: //name// cc: Urbano Rodriguez John E. DO ~ THIS REPORT FOR: //name// Please refer to the History and Physical performed in the physician's office. By: 0930Medical Records Staff [facility] /SHAKIRA
[~2019-06-04 09:31] MED LIST changes: +NORCO 5-325 TA1 EAC1 PO
--- NOTE | 2019-06-04 10:55 | NUR ---
PT IS 79 Y/O MALE DIRECT ADMIT TO PACU ROOM F FOR CHOLELITHIASIS. PT WILL EVENTUALLY BE MOVED TO MED/SURG FLOOR. PT IS HARD OF HEARING SO THE MAJORITY OF HEALTH HISTORY/ASSESSMENT OBTAINED FROM PT'S , ALEA. PT CAME TO OUR ER LAST SUNDAY W/ABDOMINAL PAIN AND WAS FOUND TO HAVE CHOLELITHIASIS. PT IS ON PERITONEAL DIALYSIS. PT DENIES PAIN. ROOM AIR. PT HAS PERITONEAL DIALYSIS CATHETER NOTED TO HIS RIGHT UPPER ABDOMEN W/DRESSING THAT IS C/D/I. NEPHROLOGY HAS BEEN CONSULTED. PLAN FOR PT TO HAVE SURGERY THIS SUNDAY, THE . LEFT FOREARM 20 GAUGE PLACED BY SADIE SNOW RN. PT ALSO HAS RIGHT UPPER ARM FISTULA/GRAFT WITH POSTIVE BRUIT/POSITIVE THRILL. PT DOES MAKE URINE, MOSTLY IN THE MORNING, PER HIS . PLAN FOR PT TO HAVE MRCP. CALL LIGHT WITHIN REACH. WILL CONTINUE TO MONITOR PT CLOSELY.
[2019-06-04 11:20] VITALS: BP 102/55
--- NOTE | 2019-06-04 11:21 | NUR ---
DR. MOON NOTIFIED OF PT'S ARRIVAL ORDERED. DR. MOON TO ENTER ORDERS IN COMPUTER.
[2019-06-04 12:33] LABS: ABSOLUTE EOSINOPHILS 0.1 thou/uL (0.0-0.7); ABSOLUTE LYMPHOCYTES 0.3 thou/uL (0.8-5.3); ABSOLUTE MONOCYTES 0.5 thou/uL (0.0-1.2); ABSOLUTE NEUTROPHILS 4.6 thou/uL (1.6-8.1); BASOPHILS 0.4 %; HEMATOCRIT 25.7 % (42.0-52.0); HEMOGLOBIN 9.1 gm/dL (14.0-18.0); LYMPHOCYTES 5.1 %; MCH 33.8 pg (26.0-34.0); MCHC 35.2 g/dL (28.0-37.0); MCV 96.1 fL (80.0-100.0); MONOCYTES 9.1 %; MPV 7.5 fl. (7.2-11.1); NUCLEATED RBCS 0 /100WBC; PLATELET COUNT* 85 thou/uL (150-400); POLYS 84.4 %; RBC 2.68 mil/uL (4.50-6.00); RDW-CV 14.5 % (10.5-14.5); WBC 5.4 thou/uL (4.0-11.0)
[2019-06-04 12:42] LABS: CALCIUM 7.3 mg/dL (8.5-10.1); CREATININE 12.9 mg/dL (0.6-1.3)
[2019-06-04 12:43] LABS: INR 3.8; PROTIME 37.5 Seconds (9.20-11.50)
[2019-06-04 12:46] LABS: ALBUMIN 2.2 g/dL (3.4-5.0); MAGNESIUM 2.1 mg/dL (1.8-2.4); PHOSPHORUS* 6.3 mg/dL (2.5-4.9); TOTAL BILIRUBIN 1.2 mg/dL (<0.1-1.0); TOTAL PROTEIN 5.6 g/dL (6.4-8.2)
--- NOTE | 2019-06-04 13:50 | NUR ---
DR. MOON RETURNED EARLIER PAGE REGARDING ORDERING ANY OF THE PT'S HOME MEDS, AND REVIEWING LAB RESULTS. ASKED IF THERE WAS ANYTHING URGENTLY NEEDED. IT DID NOT SEEM SO MOST OF PT'S LABS WERE CONSISTENT WITH HIS HISTORY. CONFIRMED DR. MOON WILL BE BY LATER TO REVIEW EVERYTHING MORE THOROUGHLY, AND HE SAID YES.
--- NOTE | 2019-06-04 14:40 | NUR ---
ANNELISE BOX BLANK MACHINE FEEDER, HERE FOR PT'S ECHOCARDIOGRAM. PT WILL THEN BE MOVED TO ROOM 112.
--- NOTE | 2019-06-04 14:58 | NUR ---
NOTIFIED PT'S , ALEA, THAT PT HAS BEEN MOVED TO ROOM 115.
[2019-06-04 16:00] VITALS: BP 105/56
--- NOTE | 2019-06-04 16:33 | 2DMMODE ---
[place] [address] 2 D/M-MODE ECHOCARDIOGRAM Name: MARIA ISABEL CLINE Room: [address] IN .R.#: [id number] Admission: 06/04/19 Attend Phys: Jean Yoo, Discharge: Date of : 44 Date of Service: 06/04/19 1632 Report #: [id number] THIS REPORT FOR: cc: Urbano Rodriguez,Urbano Valle,Urbano Broussard MD [facility] ~ APPROVED REPORT Study performed: 06/04/2019 14:16:26 EXAM: Comprehensive 2D, Doppler, and color-flow Echocardiogram Patient Location: In-Patient Room #: [facility] Status: routine BSA: 1.94 HR: 64 bpm BP: 102/55 mmHg Rhythm: NSR Other Information Study Quality: Good Indications Pre-Op 2D Dimensions IVSd: 13.62 (7-11mm) LVOT Diam: 24.38 (18-24mm) LVDd: 49.29 mm PWd: 13.14 (7-11mm) Ascending Ao: 37.91 (22-36mm) LVDs: 28.65 (25-40mm) Aortic Root: 37.68 mm Volumes Left Atrial Volume (Systole) LA ESV Index: 31.40 mL/m2 Aortic Valve LVOT Max P.39 mmHg LVOT Mean P.49 mmHg LVOT Max V: 1.05 m/s LVOT Mean V: 0.74 m/s LVOT V1 VTI: 23.94 cm AI [place]: 1.97 m/s2 AI PHT: 558.95 [place] [address] 2 D/M-MODE ECHOCARDIOGRAM Name: MARIA ISABEL CLINE Room: [address] IN .R.#: [id number] Admission: 06/04/19 Attend Phys: Jean Yoo, Discharge: Date of : 44 Date of Service: 06/04/19 1632 Report #: [id number] Mitral Valve E/A Ratio: 0.74 MV Decel. Time: 176.12 ms MV E Max Bismark.: 0.70 m/s MV PHT: 51.07 ms MVA (PHT): 4.31 cm2 TDI E/Lateral E': 6.36 E/Medial E': 6.36 Medial E' Bismark.: 0.11 m/s Lateral E' Bismark.: 0.11 m/s Pulmonary Valve PV Peak Bismark.: 1.11 m/s PV Peak Gr.: 4.89 mmHg Left Ventricle The left ventricle is normal size. There is anteroapical hypokinesis noted. There is normal left ventricular wall thickness. Left ventricular systolic function is mildly decreased. LVEF is 50%. Grade I - abnormal relaxation pattern. Right Ventricle The right ventricle is normal size. The right ventricular systolic function is normal. Atria The left atrium size is normal. The right atrium size is normal. Aortic Valve Mild aortic valve sclerosis. Mild aortic regurgitation. There is no aortic valvular stenosis. Mitral Valve The mitral valve is normal in structure. Trace mitral regurgitation. No evidence of mitral valve stenosis. Tricuspid Valve The tricuspid valve is normal in structure. Unable to assess PA pressure. Trace tricuspid regurgitation. Pulmonic Valve The pulmonary valve is normal in structure. There is no pulmonic [place] [address] 2 D/M-MODE ECHOCARDIOGRAM Name: MARIA ISABEL CLINE Junaid Room: [address] IN [facility].#: [id number] Admission: 06/04/19 Attend Phys: Jean Yoo, Discharge: Date of : 44 Date of Service: 06/04/19 1632 Report #: [id number] Great Vessels The aortic root is normal in size. IVC is normal in size and collapses >50% with inspiration. Pericardium There is no pericardial effusion. <Conclusion> The left ventricle is normal size. Left ventricular systolic function is mildly decreased. LVEF is 50%. Grade I - abnormal relaxation pattern. The right ventricle is normal size. The left atrium size is normal. Mild aortic valve sclerosis. Mild aortic regurgitation. There is no aortic valvular stenosis. The mitral valve is normal in structure. The tricuspid valve is normal in structure. IVC is normal in size and collapses >50% with inspiration. There is no pericardial effusion. There is anteroapical hypokinesis noted. <ELECTRONICALLY SIGNED> By: Urbano Alfred MD, FACC 06/04/19 163 [id number] Urbano Alfred MD, FACC /INF
--- NOTE | 2019-06-04 16:38 | NUR ---
PT ALERT AND ORIENTED AND VERY HARD OF HEARING AND VISION. PT UNABLE TO SIGN MEDICARE AND FALL RISK PAPERS DO TO NOT UNDERSTANDING AFTER ATTEMPTING TO EXPLAIN. MRCP ORDERED AND AWAITING RESULTS. PT SPOUSE CAME LATER IN THE SHIFT AND STATED THAT PT IS TO GET DIALYSIS TODAY, WAS UNAWARE. ATTEMPTED TO CALL NEPHROLOGY, UNABLE TO GET THROUGH AND CALLED DIALYSIS NURSE. WILL AWAIT RESPONSE AND UPDATE PATIENT. FALL RISK PRECAUTIONS IN PLACE. HOURLY ROUNDING COMPLETED. WILL CONTINUE TO MONITOR.
[2019-06-04 19:58] LABS: ALBUMIN 2.2 g/dL (3.4-5.0); CALCIUM 7.7 mg/dL (8.5-10.1); CREATININE 13.4 mg/dL (0.6-1.3); PHOSPHORUS* 6.4 mg/dL (2.5-4.9); POTASSIUM 3.8 mmol/L (3.5-5.1)
[2019-06-04 21:38] VITALS: BP 117/62
[2019-06-05 04:35] LABS: PROTIME 20.1 Seconds (9.20-11.50)
[2019-06-05 04:55] LABS: CALCIUM 6.8 mg/dL (8.5-10.1); CREATININE 12.7 mg/dL (0.6-1.3); PHOSPHORUS* 5.6 mg/dL (2.5-4.9); POTASSIUM 3.6 mmol/L (3.5-5.1)
--- NOTE | 2019-06-05 07:00 | NUR ---
ASSUMED CARE OF PT 06/04/19 AT APPROX 1930, PT A&OX4, PT VERY HARD OF HEARING, COMMUNICATION BY WRITTEN NOTES, VSS, PERITONEAL DIALYSIS THERPY IN PROGRESS, VSS, ASSESSMENTS AND HOURLY ROUNDINGS COMPLETED.
--- NOTE | 2019-06-05 09:00 | NUR ---
REC'D REPORT FROM IAIN RN. ASSUMED CARE APPROX 0730. PATIENT RESTING IN BED DURING BEDSIDE REPORT. PATIENT UNABLE TO COMMUNICATE DUE TO SEVERE [place]. USING WRITTEN NOTES TO ASSESS ORIENTATION AND IF PAIN IS PRESENT. ASSESSMENT COMPLETE. VS OBTAINED. NO C/O PAIN, N/V, SOA OR OTHER DISTRESS. CALL LIGHT IN REACH. HOURLY ROUNDING FOR SAFETY AND PATIENT NEEDS.
[2019-06-05 09:16] VITALS: BP 94/54
[2019-06-05 16:22] VITALS: BP 89/46
--- NOTE | 2019-06-05 18:30 | NUR ---
PATIENT RESTING IN BED. [facility] TO SET UP PERITONEAL DIALYSIS. PATIENT STATES "MY STOMACH IS TOO FULL TO EAT RIGHT NOW." ATE ICE CREAM FROM ME[employer]. PATIENT WALKED IN HALLWAY WITH STREETCAR DISPATCHER THIS AFTERNOON AND VISITED FAMILY MEMBER. HERE TO VISIT. CHANGED PERITONEAL DRSG WITH HOME SUPPLIES. MIDODRINE BID ORDERED FOR HYPOTENSION. LISINOPRIL DC'D. PERIMETERS GIVEN FOR METOPROLOL AND ISOSORBIDE MONONITRATE. SEE MISCELLANEOUS MESSAGE. CALL LIGHT IN REACH. HOURLY ROUNDING FOR SAFETY AND PATIENT NEEDS.
[2019-06-05 21:05] VITALS: BP 137/69
[2019-06-06 04:25] LABS: INR 1.2; PROTIME 11.9 Seconds (9.20-11.50)
[2019-06-06 04:26] LABS: ALBUMIN 1.9 g/dL (3.4-5.0); CALCIUM 7.1 mg/dL (8.5-10.1); CREATININE 12.2 mg/dL (0.6-1.3); POTASSIUM 3.5 mmol/L (3.5-5.1); TOTAL BILIRUBIN 0.8 mg/dL (<0.1-1.0); TOTAL PROTEIN 5.2 g/dL (6.4-8.2)
--- NOTE | 2019-06-06 05:28 | NUR ---
PATIENT HAS SLEPT WELL THROUGHOUT MOST OF THE NIGHT. VSS ON RA. PATIENT CURRENTLY ON PERITONEAL DIALYSIS DURING THE NIGHT. MEDICATIONS GIVEN ORDERED AND CHARTED. IV IN LEFT FOREARM-SL. IV ABT GIVEN ORDERED WITHOUT ANYD ADVERSE SIDE EFFECTS.PATIENT HAS REMAINED NPO SINCE MIDNIGHT D/T SCHEDULED PROCEDURE TODAY. PATIENT INSTRUCTED TO USE CALL LIGHT WHEN NEEDING ASSISTANCE. HOURLY ROUNDS MADE. WILL CONTINUE WITH PLAN OF CARE AND NURSING TO MONITOR.
[2019-06-06 07:21] VITALS: BP 137/69
[2019-06-06 07:50] VITALS: BP 99/57
--- NOTE | 2019-06-06 15:00 | NUR ---
PT.IN SURGERY. REVIEW OF CHART AND DISCUSSED WITH NURSING. PT.LIVES WITH . HAS A HX OF CVA. ASSISTS HIM NEEDED. HAS A CANE AND WALKER AT HOME. DOES PERITONEAL DIALYSIS AT NIGHT. HELPS WITH THAT ALSO. [phone]/VSL-[phone].
--- NOTE | 2019-06-06 15:11 | NUR ---
PT ALERT TO PERSON. PT DENIES PAIN. PT HAD BM THIS AM. PT UP TO BSC WITH MINIMAL ASSISTANCE. VSS. AFEBRILE. PT IN SURGERY.
[2019-06-06 18:05] VITALS: BP 113/57
--- NOTE | 2019-06-06 18:30 | NUR ---
PT CAME BACK FROM PACCU NO C/O PAIN. VSS. AFEBRILE.
[2019-06-06 20:15] VITALS: BP 127/61
[2019-06-07] VITALS: BP 118/61
[2019-06-07 03:00] VITALS: BP 106/59
[2019-06-07 04:24] LABS: HEMOGLOBIN 8.8 gm/dL (14.0-18.0); MCH 33.8 pg (26.0-34.0); MCHC 35.1 g/dL (28.0-37.0); MCV 96.3 fL (80.0-100.0); MPV 8.3 fl. (7.2-11.1); NUCLEATED RBCS 0 /100WBC; PLATELET COUNT* 85 thou/uL (150-400); RDW-CV 14.1 % (10.5-14.5); WBC 6.4 thou/uL (4.0-11.0)
[2019-06-07 05:01] LABS: ALBUMIN 1.9 g/dL (3.4-5.0); CALCIUM 7.6 mg/dL (8.5-10.1); CREATININE 14.2 mg/dL (0.6-1.3); POTASSIUM 4.3 mmol/L (3.5-5.1); TOTAL BILIRUBIN 0.7 mg/dL (<0.1-1.0); TOTAL PROTEIN 5.5 g/dL (6.4-8.2)
--- NOTE | 2019-06-07 05:18 | NUR ---
PT ORIENTED X 2-3, HARD OF HEARING. PT ON 2L BY NC WITH CAPNO, VSS. HYDROCODONE GIVEN FOR ABD PAIN. LAP SITE C/D/I. NO N/V. PT SLEEPING WELL THROUGH THE NIGHT. HOURLY ROUNDING COMPLETED. WILL CONTINUE TO MONITOR.
[2019-06-07 06:17] LABS: ABSOLUTE LYMPHOCYTES 0.3 thou/uL (0.8-5.3); ABSOLUTE MONOCYTES 0.1 thou/uL (0.0-1.2); ATYPICAL LYMPHS 1 %; METAMYELOCYTES 2 %
[2019-06-07 06:18] LABS: PLATELET ESTIMATE DECREASED
[2019-06-07 08:00] VITALS: BP 105/52
--- NOTE | 2019-06-07 14:14 | NUR ---
PT AMBULATING IN HALLS WITH SB ASSIST. STEADY GAIT.
[2019-06-07] MEDS ORDERED: NORCO 5-325 TA1 EAC1 PO (15:05)
[2019-06-07 15:52] VITALS: BP 105/52
[2019-06-08] MEDS ORDERED: MIRALAX119 GM PO (08:14)
[2019-06-08] MEDS ORDERED: SENNA PLUS TAB1 EACH PO (08:15)
--- NOTE | 2019-06-10 17:07 | PATH ---
[address] [address] PATHOLOGY RPT PROCEDURE Name: MARIA ISABEL CLINE Room: [address] IN M.R.#: [id number] Admission: 06/04/19 Date of : 42 Discharge: 06/07/19 Report #: [id number] Path Case #: [id number] [facility] Accession Number: [id number] . 01 Material submitted: . gallbladder - GALLBLADDER . 01 Clinical history: . Poss cholangitis Cholecystitis . 02 Diagnosis: Gallbladder: - Chronic and acute cholecystitis. (JAYCEE/db; 06/10/2019) LBQ 06/10/2019 1456 Local . 02 Electronically signed: . Dhaval Joyner MD, Pathologist NPI- [id number] . 01 Gross description: . The specimen is received in formalin labeled "Greg, Medina, gallbladder" and consists of intact pink-shearer smooth shiny gallbladder measuring 8.3 x 3.0 x 1.4 cm. The margin is inked black. Opening reveals a lumen filled with hemorrhagic material and green bile. No calculi are identified. The mucosa is green with scattered yellow flecks and an average wall thickness of 0.1 cm. No masses are identified. Drafter Cartographic sections are submitted in A1. (SDY; 06/09/2019) SYU/SYU 06/09/2019 1026 Local . 02 Pathologist provided ICD-10: K81.2 . 02 CPT . 820017 Specimen Comment: A courtesy copy of this report has been sent to [phone], [phone] Specimen Comment: [phone], Specimen Comment: Report sent to , and Performed at: [address] [facility] [address] [id number] MD Timothy Siegel MD Phone: [phone] Performed at: [address] [facility] [id number] [place] [address] PATHOLOGY RPT PROCEDURE Name: JACKSON CLINEMary Quiroga Room: [address] DIS IN M.R.#: [id number] Admission: 06/04/19 Date of : 42 Discharge: 06/07/19 Report #: [id number] Path Case #: [id number] MD Dhaval Joyner [place] Phone: [phone]
--- NOTE | 2019-06-10 17:43 | OP ---
[address] [address] OPERATIVE REPORT Name: MARLYNNICOLAS R Room: [address] IN M.R.#: [id number] Admission: 06/04/19 Attend Phys: Jean Yoo MD Discharge: 06/07/19 Date of : 42 Report #: [id number] THIS REPORT FOR: //name// cc: Urbano Rodriguez John E. DO ~ THIS REPORT FOR: //name// CC: Aj Rodriguez DATE OF SERVICE: 06/06/2019 PROCEDURE PERFORMED: Laparoscopic cholecystectomy with intraoperative cholangiogram. PREPROCEDURAL DIAGNOSIS: Possible choledocholithiasis. POSTPROCEDURAL DIAGNOSIS: Cholecystitis. SURGEON: Jean Yoo MD ASSISTANCE: None. ANESTHETIC: 1. General. 2. Local. ESTIMATED BLOOD LOSS: 5 mL. URINE OUTPUT: Not measured. SPECIMENS: Gallbladder and contents. FINDINGS: 1. Dilated biliary tree on cholangiogram. Dilated common bile duct, filling of the proximal ducts, filling of the duodenum with no distal common bile duct obstruction. 2. The patient had pericholecystic fluid and thickened gallbladder wall consistent with cholecystitis. INDICATIONS FOR PROCEDURE: The patient is a very pleasant gentleman who has had abdominal pain. He has been found on workup to have a dilated biliary tree, concerning for possible obstruction. The risks, benefits and alternatives of the procedure were discussed with the patient and his . The risks discussed included but were not limited to the risk of bleeding, infection, damage to any [facility] [address] [place] [address] OPERATIVE REPORT Name: MARIA ISABEL CLINE Junaid Room: [address] IN M.R.#: [id number] Admission: 06/04/19 Attend Phys: Jean Yoo MD Discharge: 06/07/19 Date of : 42 Report #: [id number] intraabdominal anatomy, damage to the common bile duct, necessitating further surgery, further hospitalization and could be a life altering event, conversion to open, anesthesia (cardiac, pulmonary, neurologic type complications), infection of his peritoneal dialysis catheter requiring removal and . They had the opportunity to ask questions. All questions were answered to the best of my ability. At the end of the discussion, they did wish to proceed with surgery. DESCRIPTION OF PROCEDURE: After informed consent was obtained as above, the patient was taken to the operating room and placed in the supine position. General anesthesia was induced. Preprocedural antibiotics were administered and anterior abdomen was prepped and draped in the usual sterile fashion and a timeout was performed, all were in agreement. An Ioban was placed. A 5 mm incision was made in the supraumbilical position. Veress needle was inserted. Pneumoperitoneum was created. This took one attempt. A 5 mm port was passed and laparoscope was inserted. There were no gross abnormalities appreciated aside from thickened gallbladder, consistent with cholecystitis. Next, the following ports were placed in standard fashion after injection of local anesthetic: A 12 mm subxiphoid port and two 5 mm right upper quadrant ports, all ports were placed without any difficulty. The gallbladder was grasped and retracted towards the patient's right shoulder. The neck of the gallbladder was grasped and retracted towards the patient's right. Peritoneum overlying the gallbladder was incised with electrocautery and the peritoneum was opened up medially and laterally towards the hepatic surfaces and up towards the dome of the gallbladder. The triangle of Calot was then dissected out using extreme caution. The cystic duct was dissected out circumferentially. The cystic artery was dissected out circumferentially. The critical view was obtained and we had only two structures coming into and out of the gallbladder. The triangle of Calot was dissected out and the cystic plate dissected out assisted up the body of the gallbladder. Pictures were obtained. Next, a cholangiogram was performed. The clip was placed distally on the gallbladder. A ductotomy was created. Cholangiogram catheter was threaded. A cholangiogram was performed. The distal common bile duct was not obstructed. The common bile duct and common hepatic duct were grossly enlarged. The common hepatic duct did fill; however, this did take quite a bit of contrast to get it to fill. The duodenum filled. The cholangiogram was completed. The catheter was removed. The cystic duct was then clipped with 2 clips proximally. The cystic duct was transected. The cystic artery was transected with scissors. The cystic artery was then clipped with 2 clips proximally and one clip distally. Cystic artery was transected with scissors. Hemostasis was present. An Endoloop was placed on the cystic duct because it was large in diameter to ensure that there was no bile leak. The gallbladder was retracted and dissected off the cystic plate using electrocautery. The cystic plate was hemostatic. The gallbladder was passed [address] [address] OPERATIVE REPORT Name: MARIA ISABEL CLINE Room: [address] IN .R.#: [id number] Admission: 06/04/19 Attend Phys: Jean Yoo MD Discharge: 06/07/19 Date of : 42 Report #: [id number] into a laparoscopic retrieval bag and removed out of the 12 mm port site under direct visualization. All free fluid was suctioned out. Hemostasis was present. Clips were intact. Endoloop was then placed. The 12 mm port using in a laparoscopic fascial closure device fashion. The pneumoperitoneum was released. Hemostasis was present. The incisions were closed using 4-0 Monocryl in a subcuticular interrupted fashion. The abdomen was cleaned and dried, covered with Dermabond. The patient tolerated the procedure well. There were no adverse events throughout the course of the procedure. <ELECTRONICALLY SIGNED> By: Jean Yoo MD 06/10/19 1743 1649 2037Clmarin Yoo MD /nt
--- NOTE | 2019-06-11 10:24 | CON ---
[address] [address] CONSULTATION Name: MARLYNNICOLAS R Room: [address] IN M.R.#: [id number] Admission: 06/04/19 Attend Phys: Jean Yoo MD Discharge: 06/07/19 Date of : 42 Report #: [id number] THIS REPORT FOR: //name// cc: Urbano Rodriguez John E. DO ~ THIS REPORT FOR: //name// CC: Aj Rodriguez DATE OF SERVICE: 06/05/2019 NEPHROLOGY CONSULTATION CONSULTING PHYSICIAN: Jean Yoo MD REASON FOR NEPHROLOGY CONSULTATION: End-stage renal disease, on PD for maintenance of PD. HISTORY OF PRESENT ILLNESS: This is a 79-year-old male with past medical history of end-stage renal disease, on peritoneal dialysis, CCPD; paroxysmal atrial fibrillation, came in with abdominal pain and was found to have evidence of cholecystitis and a lap meggan will be performed tomorrow. He achieved cardiac clearance. He also has past medical history of CVA, history of GI bleed, hypertension and dyslipidemia. We did PD last night without any trouble. He still is not comfortable in his abdomen. He did have his breakfast this morning. He had an MRCP yesterday, which showed a dilated CBD around 1.6 cm. REVIEW OF SYSTEMS: As mentioned in the history of present illness. The patient is not a great historian, was not able to obtain a detailed review of systems. ALLERGIES: None that we know of. PAST SURGICAL HISTORY: Includes IVC filter placement, nasal septal surgery, TDC placement, right upper extremity AV fistula creation also, PD catheter placement. FAMILY HISTORY: Noncontributory in this situation. PAST MEDICAL HISTORY: Includes end-stage renal disease, on peritoneal dialysis; CVA; history of GI bleed; hypertension; dyslipidemia. SOCIAL HISTORY: Does not smoke or drink alcohol or use illicit drugs. He [place] [address] CONSULTATION Name: MARLYNMARIA ISABEL Room: [address]#: [id number] Admission: 06/04/19 Attend Phys: Jean Yoo MD Discharge: 06/07/19 Date of : 42 Report #: [id number] PHYSICAL EXAMINATION: VITAL SIGNS: His blood pressure is 117/62, pulse rate is 74, temperature is 37.2, respiratory rate is 16 and he is on no oxygen. GENERAL: He is awake and alert and oriented. HEAD AND EYES: Atraumatic, normocephalic. EARS, NOSE, AND THROAT: Normal ears and nose. Mucous membranes are moist. NECK: No JVD. CHEST: Bilaterally diminished breath sounds, but no crackles heard anteriorly. CARDIOVASCULAR: S1, S2 normal. No murmurs. ABDOMEN: Distended with PD fluid and PD catheter is intact in the right lower quadrant and PD exit site looks clean. There is no tenderness on my examination, but the patient was not comfortable, complaining of abdominal pain. EXTREMITIES: Lower extremities, there is no lower extremity edema. NEUROLOGICAL FUNCTION: Gross neurological function is intact. PSYCHIATRIC: We were unable to assess the mood. LABORATORY DATA: Hemoglobin is 9.1, WBC 5.4, platelet count is 85. Sodium 138, potassium is 3.6, BUN 99 and other labs were reviewed. IMAGING: MRCP report was reviewed. ASSESSMENT: 1. End-stage renal disease, on peritoneal dialysis, continuous cycling peritoneal dialysis. 2. The patient has history of cerebrovascular accident. 3. History of gastrointestinal bleed. 4. Hypertension. 5. Hyperlipidemia. 6. Diagnosis of cholecystitis as per the patient's notes. Plan for him to go for laparoscopic cholecystectomy tomorrow. 7. Secondary hyperparathyroidism and hyperphosphatemia. PLAN: 1. We will continue PD tonight. According to his regimen, we will use 1 bag of 2.5% and 2 bags of 1.5% with 5 fill until fill volume of 2300 mL. He usually has a last fill 1200 mL, but we will admit that tomorrow and keep his peritoneal cavity dry, preoperative antibiotics ordered prior to laparoscopic cholecystectomy in the form of one dose of ampicillin and gentamicin and one dose of Flagyl. 2. Renvela to continue, phosphorus of 5.6 better. 3. Thank you for this consultation. [place] [address] CONSULTATION Name: MARIA ISABEL CLINE Room: [address] IN M.R.#: [id number] Admission: 06/04/19 Attend Phys: Jean Yoo MD Discharge: 06/07/19 Date of : 44 Report #: [id number] 4. We will also order Epogen for his anemia. 5. Discussed with the patient and the pharmacist and the patient's nurse. <ELECTRONICALLY SIGNED> By: Kaylene Musa MD 06/11/19 1024 0911 [id number] Musa MD /nt
== END 2019-06-07 16:03 | disposition home health service (06) | DRG 417 ==
LOC: M.TBA 09:31 → M.ORTHSURG 10:34 → M.TBA 10:34 → M.ORTHSURG 14:55
PROVIDERS: ADMIT Surgery
PROC: 0FT44ZZ Resection of Gallbladder, Percutaneous Endoscopic Approach (ICD-10-PCS; principal; 2019-06-06)
PROC: BF101ZZ Fluoroscopy of Bile Ducts using Low Osmolar Contrast (ICD-10-PCS; principal; 2019-06-06)
DX: K80.40 Calculus of bile duct with cholecystitis, unspecified, without obstruction (principal); N18.6 End stage renal disease; N25.81 Secondary hyperparathyroidism of renal origin; I42.9 Cardiomyopathy, unspecified; I13.2 Hypertensive heart and chronic kidney disease with heart failure and with stage 5 chronic kidney disease, or end stage renal disease; E83.39 Other disorders of phosphorus metabolism; I48.0 Paroxysmal atrial fibrillation; D64.9 Anemia, unspecified; I50.9 Heart failure, unspecified; I25.10 Atherosclerotic heart disease of native coronary artery without angina pectoris; E78.5 Hyperlipidemia, unspecified; Z99.2 Dependence on renal dialysis; Z86.73 Personal history of transient ischemic attack (TIA), and cerebral infarction without residual deficits; Z79.899 Other long term (current) drug therapy; Z79.01 Long term (current) use of anticoagulants

== ENCOUNTER 2019-06-07 22:42 | Inpatient (IN) | payer MEDICARE ==
[~2019-06-07] VITALS: Ht 177.8 cm; Wt 82.2 kg
[2019-06-07 22:50] VITALS: BP 135/62
[2019-06-07 23:36] LABS: HEMATOCRIT 26.7 % (42.0-52.0); HEMOGLOBIN 9.4 gm/dL (14.0-18.0); MCH 33.4 pg (26.0-34.0); MCV 95.6 fL (80.0-100.0); MPV 8.1 fl. (7.2-11.1); NUCLEATED RBCS 0 /100WBC; PLATELET COUNT* 126 thou/uL (150-400); RDW-CV 14.2 % (10.5-14.5); WBC 12.9 thou/uL (4.0-11.0)
[2019-06-07 23:38] LABS: CALCIUM 7.6 mg/dL (8.5-10.1); POTASSIUM 4.1 mmol/L (3.5-5.1)
[2019-06-07 23:40] LABS: CREATININE 15.4 mg/dL (0.6-1.3)
[2019-06-07 23:43] LABS: ALBUMIN 2.3 g/dL (3.4-5.0); TOTAL BILIRUBIN 0.8 mg/dL (<0.1-1.0)
[2019-06-08 01:30] LABS: ABSOLUTE MONOCYTES 0.3 thou/uL (0.0-1.2); ABSOLUTE NEUTROPHILS 11.6 thou/uL (1.6-8.1); PLATELET ESTIMATE DECREASED
[2019-06-08 01:31] LABS: ANISOCYTOSIS 1+
[2019-06-08 01:34] VITALS: BP 135/62
[2019-06-08 01:35] VITALS: BP 130/67
--- NOTE | 2019-06-08 03:24 | NUR ---
RECEIVED REPORT AND ASSUMED CARE AT 0125. PT TRANSPORTED FROM ED TO ROOM 224. VSS. CARDIAC MONITORING IN PLACE. PT DENIES COMPLAINTS OF PAIN. ASSESSMENT AND ADMISSION COMPLETED CHARTED.PT ORIENTATED TO ROOM, CALL LIGHT, FALL POLICY. BED LOCKED IN LOWEST POSITION, CALL LIGHT. WITHIN REACH, BED ALARM ON. ER DOCUMENTATION STATES DIALYSIS NURSE WAS TO COME TO HOSPITAL (REPORTED BY PATIENTS ). PER REPORT FROM ED RN, ATTEMPTS MADE TO CONTACT DIALYSIS NURSE FOR CARE OF PERITONEAL TUBE.UNSUCCESSFUL IN CONTACTING. PAGE SENT TO PHYSICIAN./ NO CALL BACK NUMBER FOR STONE ROUGHER FROM PT. PER HOME STONE ROUGHER, SHE SPOKE TO . WAS TOLD ORDERS THAT HE PLANNED ON GIVING TO ER PHYSICIAN R/T TREATMENT UPON ADMISSION.R/T BLOOD IN PERITONEAL TUBE// POSSIBLE NEED FOR HEPARIN TO PREVENT CLOTTING OFF OF TUBE. SECOND PAGE TO , CALL BACK RECEIVED. INSTRUCTED TO "TUCK THE PATIENT IN, PUT THE PATIENT TO SLEEP, LET HIM SLEEP. A DIALYIS NURSE WILL BE THERE IN THE MORNING"
[2019-06-08 04:00] VITALS: BP 109/58
[2019-06-08] MEDS ORDERED: MIRALAX119 GM PO (08:14)
[2019-06-08] MEDS ORDERED: SENNA PLUS TAB1 EACH PO (08:15)
[2019-06-08 10:25] VITALS: BP 104/56
[2019-06-08 13:13] LABS: INR 1.2; PROTIME 12.7 Seconds (9.20-11.50)
[2019-06-08 13:49] VITALS: BP 115/71
[2019-06-08 16:07] VITALS: BP 104/51
--- NOTE | 2019-06-08 16:59 | NUR ---
ASSUMED CARE OF PATIENT AT APPROX 0730. ALERT AND ORIENTED X4. ASSESSMENT COMPLETED AND CHARTED. VSS ON ROOM AIR. ONLY COMPLAINT FROM PATIENT IS THAT HE FEELS CONSTIPATED, GIVEN LAXATIVED THIS AFTERNOON. PERITONEAL DIALYSIS NURSE HERE THIS AM AND WILL RETURN THIS AFTERNOON TO EMPTY INFUSION AND START CONSTINUOUS PERITONEAL DIALYSIS OVERNIGHT. PATIENT UP AD YONATAN IN THE ROOM. NO OTHER COMPLAINTS THIS SHIFT. CALL LIGHT WITHIN REACH. HOURLY ROUNDS COMPLETED. WILL CONTINUE WITH PLAN OF CARE.
[2019-06-09] VITALS: BP 105/66
[2019-06-09 04:13] VITALS: BP 105/56
--- NOTE | 2019-06-09 06:51 | NUR ---
DIALYSIS NURSE ON UNIT THIS EVENING STARTING PATIENT'S PERITONEAL DIALYSIS. NO COMPLICATIONS AROSE FROM PROCEDURE. PATIENT DID ATTEMPT TO CLIMB OUT OF BED TO URINATE SEVERAL TIMES THROUGHOUT THE NIGHT WITHOUT NURSING STAFF. BED ALARM ON, PATIENT REPEATEDLY REMINDED TO CALL OUT FOR ASSISTANCE. PATIENT ONLY DRIBBLED WHEN URINATING IN URINAL. IN ROOM STAYING THE NIGHT.
[2019-06-09 07:40] VITALS: BP 121/57
[2019-06-09 07:45] LABS: ABSOLUTE EOSINOPHILS 0.1 thou/uL (0.0-0.7); ABSOLUTE MONOCYTES 0.8 thou/uL (0.0-1.2); ABSOLUTE NEUTROPHILS 6.5 thou/uL (1.6-8.1); BASOPHILS 0.5 %; EOSINOPHILS 1.5 %; HEMATOCRIT 22.4 % (42.0-52.0); HEMOGLOBIN 7.8 gm/dL (14.0-18.0); LYMPHOCYTES 12.2 %; MCH 33.3 pg (26.0-34.0); MCHC 34.9 g/dL (28.0-37.0); MCV 95.5 fL (80.0-100.0); MONOCYTES 9.1 %; MPV 7.6 fl. (7.2-11.1); NUCLEATED RBCS 0 /100WBC; PLATELET COUNT* 115 thou/uL (150-400); POLYS 76.7 %; RBC 2.35 mil/uL (4.50-6.00); RDW-CV 14.2 % (10.5-14.5); WBC 8.5 thou/uL (4.0-11.0)
[2019-06-09 07:59] LABS: ALBUMIN 1.9 g/dL (3.4-5.0); CALCIUM 6.7 mg/dL (8.5-10.1); POTASSIUM 3.7 mmol/L (3.5-5.1); TOTAL BILIRUBIN 0.5 mg/dL (<0.1-1.0)
[2019-06-09 08:01] LABS: CREATININE 13.6 mg/dL (0.6-1.3)
--- NOTE | 2019-06-09 10:23 | NUR ---
Pt is [place] even with hearing aids, spoke with at bedside. Pt is normally independent, but states that over the past week, he has not been very active. Pt has a walker and cane, but has not needed to use either. Pt completes PD at home, machine in room. Hx of [facility]. No hx of SNF. Goal is home at [place], wants HH, CM updated Dr. Nieto.
[2019-06-09 11:41] LABS: INR 1.3; PROTIME 13.4 Seconds (9.20-11.50)
[2019-06-09 12:12] VITALS: BP 121/57
[2019-06-09 13:26] VITALS: BP 121/57
[2019-06-09 14:05] VITALS: BP 124/56
--- NOTE | 2019-06-09 15:02 | NUR ---
ASSUMED CARE OF PATIENT AT APPROX 0730. ALERT AND ORIENTED X4. ASSESSMENT COMPLETED AND CHARTED. VSS ON ROOM AIR. NO COMPLAINTS OF PAIN OR SOA. PERITONEAL DIALYSIS FINISHED UP AROUND 1000, DIALYSIS NURSE CAME TO DISCONNECT PATIENT AT APPROX 1245, PATIENT DISCHARGED AT 1450 WITH ALL PERSONAL BELONGINGS AND DISCHARGE INFORMATION.
== END 2019-06-09 15:01 | disposition home health service (06) | DRG 919 ==
LOC: M.ERS 22:42 → M.2W 06-08 00:05 → M.TBA-ER 06-08 00:05 → M.2W 06-08 01:28
PROVIDERS: Emergency Medicine Emergency Medical Services; Internal Medicine; ADMIT Internal Medicine
PROC: 3E1M39Z Irrigation of Peritoneal Cavity using Dialysate, Percutaneous Approach (ICD-10-PCS; principal; 2019-06-08)
DX: T85.898A Other specified complication of other internal prosthetic devices, implants and grafts, initial encounter (principal); N18.6 End stage renal disease; I13.2 Hypertensive heart and chronic kidney disease with heart failure and with stage 5 chronic kidney disease, or end stage renal disease; E44.0 Moderate protein-calorie malnutrition; N17.9 Acute kidney failure, unspecified; I25.10 Atherosclerotic heart disease of native coronary artery without angina pectoris; E78.5 Hyperlipidemia, unspecified; I50.9 Heart failure, unspecified; I25.5 Ischemic cardiomyopathy; I48.91 Unspecified atrial fibrillation; E78.00 Pure hypercholesterolemia, unspecified; D64.9 Anemia, unspecified; K59.00 Constipation, unspecified; K57.90 Diverticulosis of intestine, part unspecified, without perforation or abscess without bleeding; Z79.899 Other long term (current) drug therapy; Z79.82 Long term (current) use of aspirin; Z86.73 Personal history of transient ischemic attack (TIA), and cerebral infarction without residual deficits; Z80.9 Family history of malignant neoplasm, unspecified; Z99.2 Dependence on renal dialysis; Z90.49 Acquired absence of other specified parts of digestive tract; Z68.26 Body mass index [BMI] 26.0-26.9, adult; Z79.01 Long term (current) use of anticoagulants; Y84.1 Kidney dialysis as the cause of abnormal reaction of the patient, or of later complication, without mention of misadventure at the time of the procedure; Y92.89 Other specified places as the place of occurrence of the external cause

== ENCOUNTER 2019-06-29 13:51 | Inpatient (IN) | payer MEDICARE ==
[~2019-06-29] VITALS: Ht 177.8 cm; Wt 81.6 kg
[~2019-06-29 13:51] MED LIST changes: +MIRALAX119 GM PO; +SENNA PLUS TAB1 EACH PO
[2019-06-29 13:57] VITALS: BP 136/66
[2019-06-29 14:20] LABS: ABSOLUTE BASOPHILS 0.1 thou/uL (0.0-0.2); ABSOLUTE EOSINOPHILS 0.2 thou/uL (0.0-0.7); ABSOLUTE MONOCYTES 0.5 thou/uL (0.0-1.2); ABSOLUTE NEUTROPHILS 6.3 thou/uL (1.6-8.1); HEMOGLOBIN 8.7 gm/dL (14.0-18.0); LYMPHOCYTES 12.2 %; MCH 33.6 pg (26.0-34.0); MCHC 34.8 g/dL (28.0-37.0); MCV 96.8 fL (80.0-100.0); NUCLEATED RBCS 0 /100WBC; PLATELET COUNT* 176 thou/uL (150-400); POLYS 77.8 %; RBC 2.58 mil/uL (4.50-6.00); RDW-CV 14.9 % (10.5-14.5); WBC 8.1 thou/uL (4.0-11.0)
[2019-06-29 14:25] LABS: ANION GAP 9 mmol/L (7-16); BUN 64 mg/dL (7-18); CALCIUM 7.9 mg/dL (8.5-10.1); CHLORIDE 101 mmol/L (98-107); CO2 30 mmol/L (21-32); CREATININE 9.7 mg/dL (0.6-1.3); GLUCOSE 104 mg/dL (70-99); POTASSIUM 3.5 mmol/L (3.5-5.1); SODIUM 140 mmol/L (136-145)
[2019-06-29 14:36] LABS: ALKALINE PHOSPHATASE 97 U/L (46-116); LIPASE 287 U/L (73-393); MAGNESIUM 2.3 mg/dL (1.8-2.4); NT-PRO BRAIN NAT PEPTIDE > 35000 pg/mL (<300); SGOT 25 U/L (15-37); SGPT 23 U/L (30-65); TOTAL BILIRUBIN 0.4 mg/dL (<0.1-1.0); TOTAL PROTEIN 5.8 g/dL (6.4-8.2)
[2019-06-29 14:39] LABS: APTT 29.9 Seconds (25.0-31.3); INR 1.5; PROTIME 15.2 Seconds (9.20-11.50)
[2019-06-29] MEDS ORDERED: CALCITRIOL0.25 MCG PO (14:40)
[2019-06-29] MEDS ORDERED: D3-200050 MCG PO (14:41)
[2019-06-29 16:49] VITALS: BP 106/54
--- NOTE | 2019-06-29 17:19 | NUR ---
PT ORIENTED TO ROOM AND UNIT. BED LOW AND LOCKED, SIDE RAILS UPX3, CALL LIGHT IN REACH. RENAL CONSULT CALLED IN. WILL CONTINUE TO ASSESS.
[2019-06-29 20:00] VITALS: BP 131/70
[2019-06-30 00:38] VITALS: BP 98/60
[2019-06-30 04:26] VITALS: BP 98/58
--- NOTE | 2019-06-30 06:28 | NUR ---
PT ON PD THIS SHIFT. ALERT ORIENTED. PROFOUNDLY TONAWANDA. O2 AT 2 LITERS NC. AFIB BBB. AFIB BBB. HYDROCODONE GIVEN FOR PAIN AT HS. PT SLEPT THROUGH OUT THE SHIFT. DENIES PAIN AT THIS TIME. TM
[2019-06-30 08:00] VITALS: BP 115/64
[2019-06-30 12:12] VITALS: BP 127/66
--- NOTE | 2019-06-30 12:40 | NUR ---
CM spoke with Pt's in room. Pt is asleep, also CHICKEN RANCH. Per , Pt is normally independent, walks several miles/day. is available to assist as needed. Pt has a walker and cane, but had not been using either. Pt is on peritoneal dialysis 12 hours/day, at night. Hx of HH. Hx of SNF. Per , Pt goes to [facility] for his cares, was dx with CHF there last year, records have been requested. Goal is home at [place], but is open to SNF v HH at [place] if needed. Following.
[2019-06-30 16:20] VITALS: BP 123/66
--- NOTE | 2019-06-30 16:26 | EKG ---
[place] [address] ELECTROCARDIOGRAM REPORT Name: MARIA ISABEL CLINE Room: [address] ADM IN .R.#: [id number] Admission: 06/29/19 Attend Phys: Romario Davis Discharge: Date of : 44 Date of Service: 06/29/19 1359 Report #: [id number] THIS REPORT FOR: //name// [facility] ED Test Date: 2019-06-29 Test Time: 13:59:15 Pat Name: MARIA ISABEL CLINE Department: Room: [facility] Gender: M Plasma Processor: [facility] : 1940 Requested By: Shakeel Denny Order Number: [id number] MD: Leonard Acevedo Measurements Intervals [place] Rate: 65 P: AK: QRS: -22 QRSD: 181 T: 111 QT: 485 QTc: 505 Interpretive Statements Sinus rhythm Premature atrial complex Left bundle branch block Compared to ECG 06/01/2019 16:58:26 No significant changes noted Electronically Signed On 06-30-2019 16:25:31 CDT by Leonard Acevedo [email or web address] <ELECTRONICALLY SIGNED> By: Leonard Acevedo MD, FACC 06/30/19 1625 1359 1359 Leonard Acevedo MD, [facility] /EPI
--- NOTE | 2019-06-30 17:44 | NUR ---
PT VERY HARD OF HEARING. AMBULATED HALLS WITH RN. DENIES PAIN.
--- NOTE | 2019-06-30 18:45 | NUR ---
PT WENT IN TO AFIB AROUND 1710. HR 100S-130S. PAGED CARDIOLOGY.
[2019-07-01] VITALS: BP 105/57
--- NOTE | 2019-07-01 03:42 | NUR ---
PT ALERT ORIENTED. PT PROFOUNDLY VIEJAS. INITAL ASSESSMENT PT IN AFIB RVR UP TO 130. AMIODARONE BOLUS AND QTT STARTED. PT NOW IN A FLUTTER RATES IN THE 70S. ON PERITONEAL DIALYSIS OVER NIGHT. R AV FISTULA +THRILL +BRUIT. DENIES PAIN. AT BS. WILL CONTINUE TO [facility].
[2019-07-01 03:54] VITALS: BP 101/53
[2019-07-01 08:00] VITALS: BP 112/61
[2019-07-01 12:46] VITALS: BP 114/58
[2019-07-01 14:50] LABS: ABSOLUTE EOSINOPHILS 0.2 thou/uL (0.0-0.7); ABSOLUTE LYMPHOCYTES 1.1 thou/uL (0.8-5.3); BASOPHILS 0.4 %; EOSINOPHILS 2.1 %; HEMATOCRIT 22.8 % (42.0-52.0); HEMOGLOBIN 7.9 gm/dL (14.0-18.0); LYMPHOCYTES 11.6 %; MCH 33.7 pg (26.0-34.0); MCHC 34.8 g/dL (28.0-37.0); MCV 96.8 fL (80.0-100.0); MPV 7.2 fl. (7.2-11.1); NUCLEATED RBCS 0 /100WBC; PLATELET COUNT* 166 thou/uL (150-400); POLYS 74.9 %; RBC 2.35 mil/uL (4.50-6.00); RDW-CV 15.2 % (10.5-14.5); WBC 9.4 thou/uL (4.0-11.0)
[2019-07-01 15:01] LABS: PROTIME 23.7 Seconds (9.20-11.50)
[2019-07-01 15:02] LABS: INR 2.4
[2019-07-01 15:09] LABS: ALBUMIN 1.9 g/dL (3.4-5.0); CALCIUM 7.5 mg/dL (8.5-10.1); CREATININE 9.8 mg/dL (0.6-1.3); POTASSIUM 3.4 mmol/L (3.5-5.1); TOTAL BILIRUBIN 0.6 mg/dL (<0.1-1.0); TOTAL PROTEIN 5.8 g/dL (6.4-8.2)
[2019-07-01 16:49] VITALS: BP 118/63
[2019-07-01 20:00] VITALS: BP 141/64
[2019-07-02] VITALS (7 sets, daily range): BP systolic 102–130; BP diastolic 55–66
[2019-07-02 04:16] LABS: ABSOLUTE BASOPHILS 0.1 thou/uL (0.0-0.2); ABSOLUTE EOSINOPHILS 0.2 thou/uL (0.0-0.7); ABSOLUTE LYMPHOCYTES 0.8 thou/uL (0.8-5.3); ABSOLUTE NEUTROPHILS 6.1 thou/uL (1.6-8.1); BASOPHILS 0.8 %; EOSINOPHILS 2.8 %; HEMATOCRIT 23.7 % (42.0-52.0); HEMOGLOBIN 8.3 gm/dL (14.0-18.0); LYMPHOCYTES 10.3 %; MCHC 35.2 g/dL (28.0-37.0); MCV 96.5 fL (80.0-100.0); MONOCYTES 12.5 %; MPV 7.1 fl. (7.2-11.1); NUCLEATED RBCS 0 /100WBC; PLATELET COUNT* 162 thou/uL (150-400); POLYS 73.6 %; RBC 2.46 mil/uL (4.50-6.00); RDW-CV 15.4 % (10.5-14.5); WBC 8.2 thou/uL (4.0-11.0)
[2019-07-02 04:28] LABS: INR 2.7
[2019-07-02 04:58] LABS: ALBUMIN 1.8 g/dL (3.4-5.0); CALCIUM 7.4 mg/dL (8.5-10.1); CREATININE 9.3 mg/dL (0.6-1.3); TOTAL BILIRUBIN 0.5 mg/dL (<0.1-1.0); TOTAL PROTEIN 5.7 g/dL (6.4-8.2)
[2019-07-02] MEDS ORDERED: RANEXA500 MG PO (09:44)
[2019-07-02] MEDS ORDERED: TOPROL XL25 MG PO (09:44)
[2019-07-02 10:50] LABS: INFLUENZA A ANTIGEN Negative (Negative); INFLUENZA B ANTIGEN Negative (Negative)
--- NOTE | 2019-07-02 11:09 | NUR ---
Pt discharging to home today, faxed HH referral to [facility], [facility] no longer accepts Pt's insurance.
[2019-07-02] MEDS ORDERED: DORYX MPC120 MG PO (13:20)
--- NOTE | 2019-07-02 15:30 | NUR ---
ASSUMED PT CARE AT 0700, PT A&O X4, VSS, AFEBRILE THIS AM, DENIES ANY N/V. PT COMPLETED DIALYSIS EARLY AM, TOLERATED WELL. PT DISCHARGED HOME THIS SHIFT AT APPROX 1425, EDUCATED ON ALL DISCHARGE INSTRUCTIONS AND MEDICATIONS, IV AND IMPLEMENTATION PROJECT COORDINATOR REMOVED, HOURLY ROUNDING COMPLETED.
--- NOTE | 2019-07-03 12:37 | NUR ---
CALL FROM [facility], ASKING ABOUT DISCHARGE DATE FOR PT. TOLD HER CM WAS NOT AWARE HE WAS ON SERVICE WITH THEM. SHE SAID HE HAD BEEN SINCE 06/09. CM CALLED [facility] AND SPOKE WITH JITENDRA IN INTAKE. INFORMED HER THAT PT.WAS CURRENT WITH [facility]. ASKED HER TO PLEASE FAX DISCHARGE ORDERS AND INFORMATION THEY RECEIVED FROM US YESTERDAY. SHE SAID THEY COULD NOT DO THAT. RECALLED [facility] AND INFORMED HER. SHE SAID SHE WOULD LET THEIR INTAKE DEPT. KNOW.
--- NOTE | 2019-07-04 17:46 | CON ---
[address] [address] CONSULTATION Name: MARLYNNICOLAS R Room: [address] IN M.R.#: [id number] Admission: 06/29/19 Attend Phys: Montez Haile Discharge: 07/02/19 Date of : 44 Report #: [id number] THIS REPORT FOR: //name// cc: Urbano Rodriguez John E. DO ~ THIS REPORT FOR: //name// CC: Urbano Davis CONSULTING PHYSICIAN: Romario Davis MD REASON FOR CONSULTATION: End-stage kidney disease. HISTORY OF PRESENT ILLNESS: This is a 79-year-old gentleman with history of end-stage kidney disease, on peritoneal dialysis, admitted with chest pain, being evaluated by Cardiology and currently being medically managed. He does have some chronic constipation thus sees GI as an outpatient. Currently, he does not have any complaints. No shortness of breath. No significant abdominal pain. His is present at the bedside and helps provide much of the history. REVIEW OF SYSTEMS: Constitutional, psych, heme, eyes, ENT, respiratory, cardiac, GI, , endocrine, all negative except as documented above. PAST MEDICAL HISTORY: History of cholecystectomy, end-stage kidney disease, on peritoneal dialysis, history of CVA, history of hypertension, history of coronary artery disease, AFib. FAMILY HISTORY: Not pertinent in this 79-year-old gentleman. SOCIAL HISTORY: No tobacco. CURRENT MEDICATIONS: Reviewed. PHYSICAL EXAMINATION: VITAL SIGNS: Blood pressure 123/66, pulse 85, respirations 17, temperature 37.3. GENERAL: No acute distress. EYES: Open. EARS: Externally normal. NECK: Supple. CARDIOVASCULAR: Regular rate. LUNGS: No crackles. ABDOMEN: Soft. No rebound or guarding. MUSCULOSKELETAL: Nontender. PSYCHIATRIC: Awake, [place] [address] CONSULTATION Name: MARIA ISABEL CLINE Junaid Room: [address]#: [id number] Admission: 06/29/19 Attend Phys: Montez Haile Discharge: 07/02/19 Date of : 44 Report #: [id number] LABORATORY DATA: White cell count 8.1, hemoglobin 8.7, platelets 176. Sodium 140, potassium 3.5, chloride 101, bicarbonate 30, BUN 64, creatinine 9.7, glucose 104, calcium 7.9, magnesium 2.3. ASSESSMENT AND PLAN: 1. End-stage kidney disease, on peritoneal dialysis. 2. Hypertension. 3. Atrial fibrillation. 4. Secondary hyperparathyroidism. 5. Chest pain with a history of coronary artery disease. PLAN: 1. Continue peritoneal dialysis. 2. We will give lactulose 2 doses for constipation. His abdominal exam is benign and he does have flatus. 3. He is on calcitriol and sevelamer. 4. Cardiology is planning medical management. He may benefit from some cardiac rehabilitation as well. We will follow along with you. Thank you for requesting my opinion in the care and management of this patient. <ELECTRONICALLY SIGNED> By: Aj Mirza MD 07/04/19 [id number] [id number] Mirza MD /nt
== END 2019-07-02 14:45 | disposition home health service (06) | DRG 302 ==
LOC: M.ERS 13:51 → M.2W 15:20 → M.TBA-ER 15:20 → M.2W 17:02
PROVIDERS: Emergency Medicine Emergency Medical Services; Internal Medicine; ADMIT Internal Medicine
PROC: 3E1M39Z Irrigation of Peritoneal Cavity using Dialysate, Percutaneous Approach (ICD-10-PCS; principal; 2019-06-30)
DX: I25.110 Atherosclerotic heart disease of native coronary artery with unstable angina pectoris (principal); N18.6 End stage renal disease; I24.9 Acute ischemic heart disease, unspecified; I12.0 Hypertensive chronic kidney disease with stage 5 chronic kidney disease or end stage renal disease; D68.59 Other primary thrombophilia; I48.20 Chronic atrial fibrillation, unspecified; J98.11 Atelectasis; I48.0 Paroxysmal atrial fibrillation; E78.00 Pure hypercholesterolemia, unspecified; D64.9 Anemia, unspecified; I25.5 Ischemic cardiomyopathy; E21.1 Secondary hyperparathyroidism, not elsewhere classified; K57.90 Diverticulosis of intestine, part unspecified, without perforation or abscess without bleeding; Z79.82 Long term (current) use of aspirin; Z79.899 Other long term (current) drug therapy; Z80.8 Family history of malignant neoplasm of other organs or systems; Z86.718 Personal history of other venous thrombosis and embolism; Z90.49 Acquired absence of other specified parts of digestive tract; Z79.01 Long term (current) use of anticoagulants; Z99.2 Dependence on renal dialysis; I69.398 Other sequelae of cerebral infarction